=== PATIENT | female | born 1965 | race American Indian/Alaskan Native ===

== ENCOUNTER 2017-12-12 04:23 | Emergency (ER) | payer MEDICARE, BC ==
[2017-12-12 04:32] VITALS: RESP 18
[2017-12-12 04:33] VITALS: BMI 24.8
--- NOTE | 2017-12-12 04:57 | ED PDOC ---
Arrival/HPI - General Chief Complaint: Trauma Time Seen by Provider: 12/12/17 04:27 Historian: Patient - History of Present Illness Narrative History of Present Illness (Text): you were treated in the ED today for hx of sacrcoidosis, hypertension, TIAs, cervical spinal fusion, and has had lower back pain today with left sided lower extremity radiation, with fall due to pain with head injury and clarified right shoulder pain but no further other bony pain/tenderness but otherwise without any nausea/vomiting/headache/dizziness/difficulty breathing/chest pain/abdomen pain/numbness/loss of limb or bowel or bladder function/pain with urination/ blood in urine. 12/12/17 04:54 12/12/17 05:14 12/12/17 05:14 Time/Duration: 4-6 hours Past Medical History - Provider Review Nursing Documentation Reviewed: Yes - Travel History Have you recently traveled outside [place] w/in the past 3 mons?: No - Infectious Disease Hx of Infectious Diseases: None - Cardiac Hx Cardiac Disorders: Yes Hx Hypertension: Yes - Pulmonary Hx Respiratory Disorders: Yes Other/Comment: SARCOIDOSIS - Neurological Hx Neurological Disorder: Yes Hx Migraine: Yes Other/Comment: DRAGS Left LEG OLD - HEENT Hx Cataracts: Yes Hx Glaucoma: Yes - Renal Hx Renal Disorder: No - Endocrine/Metabolic Hx Endocrine Disorders: No - Hematological/Oncological Hx Blood Disorders: No - Integumentary Hx Dermatological Disorder: Yes (LARGE SKIN DARKENED SKIN DISCOLORATION TO RIGHT SIDE OF FACE.BLACKENED) - Musculoskeletal/Rheumatological Hx Musculoskeletal Disorders: Yes Hx Herniated Disk: Yes Hx Unsteady Gait: Yes Other/Comment: C3-C5 FUSION DISC HERNIATION - Gastrointestinal Hx Gastrointestinal Disorders: Yes (GASTRIC SLEEVE MAY 2016) - Genitourinary/Gynecological Hx Genitourinary Disorders: Yes (HYSTERECTOMY PARTIAL - 3 ABORTIONS,2 MISCARRIAGES) - Psychiatric Hx Psychophysiologic Disorder: No Hx Depression: No Hx Emotional Abuse: No Hx Physical Abuse: No Hx Substance Use: No - Surgical History Hx Cataract Extraction: Yes Hx Hysterectomy: Yes (PARTIAL) Other/Comment: gastric sleeve 2015. cervical fusion with plete and screws - Anesthesia Hx Anesthesia: Yes Hx Anesthesia Reactions: No - Suicidal Assessment Feels Threatened In Home Enviroment: No Family/Social History - Physician Review Nursing Documentation Reviewed: Yes Family/Social History: No Known Family HX Smoking Status: Never Smoked Hx Alcohol Use: No Hx Substance Use: No Allergies/Home Meds Allergies/Adverse Reactions: Allergies No Known Allergies Allergy (Verified 08/08/16 21:49) Home Medications: Home Meds Medication Instructions Recorded Confirmed Alprazolam [Xanax] 2 mg PO PRN PRN 12/12/17 12/12/17 Amlodipine/Valsartan/Hcthiazid 1 tab PO DAILY 12/12/17 12/12/17 [Exforge Hct 5-160-25 mg Tab] Codeine/Butalbital/ASA/Caffein 1 cap PO PRN PRN 12/12/17 12/12/17 [Fiorinal-Cod 04-73-571-40 Cap] Rosuvastatin Calcium [Crestor] 20 mg PO DAILY 12/12/17 12/12/17 oxyCODONE [oxyCODONE Immediate 30 mg PO PRN PRN 12/12/17 12/12/17 Release Tab] Review of Systems - Review of Systems Constitutional: Normal Eyes: Normal ENT: Normal Respiratory: Normal Cardiovascular: Normal Gastrointestinal: Normal Genitourinary Female: Normal Musculoskeletal: Back Pain Skin: Normal Neurological: Normal Endocrine: Normal Hemo/Lymphatic: Normal Psychiatric: Normal Physical Exam Vital Signs Reviewed: Yes Vital Signs Temp Pulse Resp BP Pulse Ox 12/12/17 06:20 97.9 F 57 L 18 139/78 98 12/12/17 04:30 97.8 F 60 18 165/91 H 100 Temperature: Afebrile Blood Pressure: Hypertensive Pulse: Regular Respiratory Rate: Normal Appearance: Positive for: Well-Appearing, Non-Toxic, Comfortable Pain Distress: None Mental Status: Positive for: Alert and Oriented X 3 - Systems Exam Head: Present: Atraumatic, Normocephalic Pupils: Present: PERRL Extroacular Muscles: Present: EOMI Conjunctiva: Present: Normal Ears: Present: Normal Mouth: Present: Moist Mucous Membranes Pharnyx: Present: Normal Nose (External): Present: Atraumatic Nose (Internal): Present: Normal Inspection Neck: Present: Normal Range of Motion, Other (no c-t spinal or paraspinal tenderness but mild lumbar discomfort.) Respiratory/Chest: Present: Clear to Auscultation Cardiovascular: Present: Regular Rate and Rhythm Abdomen: Present: Other (no pulsatile masses). No: Tenderness, Distention, Normal Bowel Sounds, Peritoneal Signs, Rebound, Guarding, McBurney's Point Tender, Rovsing's Sign Present, Hernias, Feeding Tubes, Ostomy Tubes, Mass/ Organomegaly, Scars Back: Present: Other (no c-t spinal or paraspinal tenderness but mild lumbar discomfort.) Upper Extremity: Present: Normal Inspection, Other (except for mild right shoulder discomfort but from/warm/sensation/cap refill/pink/radial pulse+ wo snuffbox or any other bony tenderness.) Lower Extremity: Present: Normal Inspection Neurological: Present: GCS=15, CN II-XII Intact, Speech Normal, Motor Func Grossly Intact Psychiatric: Present: Alert, Oriented x 3, Normal Insight, Normal Concentration Medical Decision Making ED Course and Treatment: you were treated in the ED today for hx of sacrcoidosis, hypertension, TIAs, cervical spinal fusion, and has had lower back pain today with left sided lower extremity radiation, with fall due to pain with head injury and clarified right shoulder pain but no further other bony pain/tenderness but otherwise without any nausea/vomiting/headache/dizziness/difficulty breathing/chest pain/abdomen pain/numbness/loss of limb or bowel or bladder function/pain with urination/ blood in urine. You were otherwise breathing easily, pink moist lips, smiling and talking easily, good strength/sensation, alert/oriented, walking easily, clear lungs, left lower leg straight leg test positive for lumbar discomfort, with mild lumbar discomfort but no redness or sign of infection, no abdomen tenderness, mild right shoulder discomfort with good warm/sensation/pink/pulses but no other bony tenderness/snuffbox tenderness, no fever temp 97.8, stable heart rate 60, stable breathing rate 18, excellent oxygen level 100% room air, elevated blood pressure 165/91 which we recommend repeat in 2-3 days primary care office to determine further treatment, radiology ct head no acute intracranial hemorrhage, ct lumbar no acute fracture, right shoulder xray no acute findings, tylenol, right shoulder sling for support, observation done in the ED with improvement, counselled to rest and thus discharged home. 1. Recommend tylenol as directed for pain. 2. Recommend flexeril as directed for breakthrough pain. 3. Recommend follow-up primary care 2-3 days to review symptoms, spinal clinic referral for spinal degenerative changes, referral to orthopedics clinic, referral to ear nose throat clinic for ethmoid sinus findings to ensure further treatment, referral to urology clinic for left punctate kidney stone. 4. If any worsening pain, fever, chills, nausea, vomiting , difficulty breathing, numbness, loss of limb function, pain with urination or any medical condition then return to the ED. FINDINGS: Brain: Minimal atrophy. No intracranial hemorrhage. No mass. Few scattered foci of decreased attenuation within periventricular/subcortical white matter. No edema. Ventricles: No hydrocephalus. Bones/joints: No acute fracture. Soft tissues: Unremarkable. Sinuses: Scattered mild mucosal thickening of ethmoid sinuses. Mastoid air cells: No mastoid effusion. Orbits: Unremarkable as visualized. IMPRESSION: 1. No intracranial hemorrhage. 2. Nonspecific white matter changes. 3. Incidental/non-acute findings are described above. FINDINGS: Vertebrae: No acute fracture. Degenerative anterolisthesis of L3 on L4. Facet osteoarthrosis within mid to lower lumbar spine. Discs/spinal canal/neural foramina: Mild degenerative disc disease at L3-L4 level. Severe degenerative disc disease at L4-L5 level. Mild disc herniations at L3-L4, L4-L5 L5-S1 levels. Moderate central canal stenosis at L3-L4, L4-L5 levels. Neuroforaminal narrowing at L3-L4, L4-L5, L5-S1 levels. Soft tissues: Unremarkable. Kidneys and ureters: Punctate calculus within LEFT kidney. IMPRESSION: 1. No fracture. 2. Incidental/non-acute findings are described above. 12/12/17 06:24 Reassessment Condition: Improved - RAD Interpretation Radiology Orders: 12/12/17 04:52 LUMBAR SPINE W/O CONTRAST [CT] Stat 12/12/17 05:11 HEAD W/O CONTRAST [CT] Stat SHOULDER RIGHT [RAD] Stat Technical Adjuster: Radiologist (see mdm for ct head, lumbar) - Medication Orders Current Medication Orders: Acetaminophen/Butalbital/Caffeine (Fioricet) 1 tab PO STAT STA Stop: 12/12/17 06:24 Discontinued Medications Acetaminophen (Tylenol 325mg Tab) 975 mg PO STAT STA Stop: 12/12/17 04:53 Last Admin: 12/12/17 04:59 Dose: 975 mg MAR Pain/Vitals Document 12/12/17 04:59 LA (Rec: 12/12/17 05:00 LA [id number]) Pain Reassessment Is This A Pain ReAssessment? No Sleep Is patient sleeping during reassessment? No Presence of Pain Presence of Pain Yes Pain Scale Used Pain Scale Used Numeric Location Pain Location Body Site Back Intensity 5 Scale Used Numeric NIHSS Stroke Scale 3 - Date/Time Evaluation Performed Date Performed: 12/12/17 When Was NIHSS Performed: Baseline - How Severe is the Stroke Level of Consciousness: 0=Alert LOC to Questions: 0=Both comments correct LOC to commands: 0=Obeys both correctly Best Gaze: 0=Normal Visual: 0=No visual loss Facial: 0=Normal Motor Arm - Left: 0=No drift Motor Arm - Right: 0=No drift Motor Leg - Left: 0=No drift Motor Leg - Right: 0=No drift Limb Ataxia: 0=Absent Sensory: 0=Normal Best Language: 0=No aphasia Dysarthia: 0=Normal articulation Extinction & Inattention (Neglect): 0=Normal, no object Score: 0 Disposition/Present on Arrival - Present on Arrival Any Indicators Present on Arrival: No History of DVT/PE: No History of Uncontrolled Diabetes: No Urinary Catheter: No History of Decub. Ulcer: No History Surgical Site Infection Following: None - Disposition Have Diagnosis and Disposition been Completed?: Yes Diagnosis: Sciatica Disposition: HOME/ ROUTINE Disposition Time: 06:29 Patient Plan: Discharge Condition: IMPROVED Additional Instructions: you were treated in the ED today for hx of sacrcoidosis, hypertension, TIAs, cervical spinal fusion, and has had lower back pain today with left sided lower extremity radiation, with fall due to pain with head injury and clarified right shoulder pain but no further other bony pain/tenderness but otherwise without any nausea/vomiting/headache/dizziness/difficulty breathing/chest pain/abdomen pain/numbness/loss of limb or bowel or bladder function/pain with urination/ blood in urine. You were otherwise breathing easily, pink moist lips, smiling and talking easily, good strength/sensation, alert/oriented, walking easily, clear lungs, left lower leg straight leg test positive for lumbar discomfort, with mild lumbar discomfort but no redness or sign of infection, no abdomen tenderness, mild right shoulder discomfort with good warm/sensation/pink/pulses but no other bony tenderness/snuffbox tenderness, no fever temp 97.8, stable heart rate 60, stable breathing rate 18, excellent oxygen level 100% room air, elevated blood pressure 165/91 which we recommend repeat in 2-3 days primary care office to determine further treatment, radiology ct head no acute intracranial hemorrhage, ct lumbar no acute fracture, right shoulder xray no acute findings, tylenol, right shoulder sling for support, observation done in the ED with improvement, counselled to rest and thus discharged home. 1. Recommend tylenol as directed for pain. 2. Recommend flexeril as directed for breakthrough pain. 3. Recommend follow-up primary care 2-3 days to review symptoms, spinal clinic referral for spinal degenerative changes, referral to orthopedics clinic, referral to ear nose throat clinic for ethmoid sinus findings to ensure further treatment, referral to urology clinic for left punctate kidney stone. 4. If any worsening pain, fever, chills, nausea, vomiting , difficulty breathing, numbness, loss of limb function, pain with urination or any medical condition then return to the ED. Prescriptions: Cyclobenzaprine [Cyclobenzaprine HCl] 10 mg PO Q8 PRN 4 Days #12 tab PRN Reason: breakthrough pain Referrals: Franck Napier APN [Primary Care Provider] - Follow up with primary Forms: [employer] (Ukrainian)
--- NOTE | 2017-12-12 06:15 | CT ---
EXAM: CT Head Without Intravenous Contrast CLINICAL HISTORY: 52 years old, female; Injury or trauma; Fall; Initial encounter; Abrasion; Head, generalized; Additional info: 52yof, fall/head injury TECHNIQUE: Axial computed tomography images of the head/brain without intravenous contrast. All CT scans at this facility use one or more dose reduction techniques, viz.: automated exposure control; ma/kV adjustment per patient size (including targeted exams where dose is matched to indication; i.e. head); or iterative reconstruction technique. Coronal and sagittal reformatted images were created and reviewed. COMPARISON: CT - HEAD W/O CONTRAST 2016-08-08 15:47 FINDINGS: Brain: Minimal atrophy. No intracranial hemorrhage. No mass. Few scattered foci of decreased attenuation within periventricular/subcortical white matter. No edema. Ventricles: No hydrocephalus. Bones/joints: No acute fracture. Soft tissues: Unremarkable. Sinuses: Scattered mild mucosal thickening of ethmoid sinuses. Mastoid air cells: No mastoid effusion. Orbits: Unremarkable as visualized. IMPRESSION: 1. No intracranial hemorrhage. 2. Nonspecific white matter changes. 3. Incidental/non-acute findings are described above.
--- NOTE | 2017-12-12 06:19 | CT ---
EXAM: CT Lumbar Spine Without Intravenous Contrast CLINICAL HISTORY: 52 years old, female; Injury or trauma; Fall; Initial encounter; Abrasion; Additional info: 52yof, with sciatica type pain TECHNIQUE: Axial computed tomography images of the lumbar spine without intravenous contrast. All CT scans at this facility use one or more dose reduction techniques, viz.: automated exposure control; ma/kV adjustment per patient size (including targeted exams where dose is matched to indication; i.e. head); or iterative reconstruction technique. Coronal and sagittal reformatted images were created and reviewed. COMPARISON: No relevant prior studies available. FINDINGS: Vertebrae: No acute fracture. Degenerative anterolisthesis of L3 on L4. Facet osteoarthrosis within mid to lower lumbar spine. Discs/spinal canal/neural foramina: Mild degenerative disc disease at L3-L4 level. Severe degenerative disc disease at L4-L5 level. Mild disc herniations at L3-L4, L4-L5 L5-S1 levels. Moderate central canal stenosis at L3-L4, L4-L5 levels. Neuroforaminal narrowing at L3-L4, L4-L5, L5-S1 levels. Soft tissues: Unremarkable. Kidneys and ureters: Punctate calculus within LEFT kidney. IMPRESSION: 1. No fracture. 2. Incidental/non-acute findings are described above.
[2017-12-12 06:21] VITALS: BP 139/78; PULSE 57; TEMP 97.9; O2SAT 98
[2017-12-12] MEDS ORDERED: Apap-Butalbital-Caffeine 325-50-40mg Tab PO STA (06:23)
--- NOTE | 2017-12-12 08:51 | RAD ---
PROCEDURE: Radiographs of the Right Shoulder HISTORY: 52F, fall/right shoulder discomfort COMPARISON: No prior. FINDINGS: BONES: Normal. No fracture. JOINTS: Normal. Glenohumeral and acromioclavicular joints preserved. No osteoarthritis. SOFT TISSUES: Normal. OTHER FINDINGS: None. IMPRESSION: Normal radiographs of the right shoulder.
== END 2017-12-12 06:46 | disposition home or self-care (01) ==
LOC: ED 04:23
DX: M54.30 Sciatica, unspecified side (principal); I10 Essential (primary) hypertension; D86.9 Sarcoidosis, unspecified

== ENCOUNTER 2018-03-26 14:34 | Inpatient (IN) | payer MEDICARE, BC ==
[2018-03-26] MEDS ORDERED: Sodium Chloride 0.9% 1,000 ML IV SCH (15:30)
[2018-03-26 16:11] LABS: BASO # 0.03 K/mm3 (0.0-2.0); BASO % 0.3 % (0.0-3.0); EOS # 0.1 (0.0-0.7); GRAN # 7.02 (1.4-6.5); GRAN % 74.6 % (50.0-68.0); HEMOGLOBIN 11.8 g/dL (12.0-16.0); LYMPH # 1.6 (1.2-3.4); LYMPH % 17.2 % (22.0-35.0); MEAN CORPUSCULAR HGB CONC 33.3 g/dl (31.0-37.0); MEAN PLATELET VOLUME 10.4 fl (7.0-11.0); MONO # 0.7 (0.1-0.6); MONO % 6.9 % (1.0-6.0); RBC 4.07 10^6/uL (3.5-6.1); WHITE BLOOD COUNT 9.4 10^3/ul (4.5-11.0)
[2018-03-26 16:17] LABS: INR 1.11 (0.93-1.08); PROTHROMBIN TIME 12.7 SECONDS (9.4-12.5)
[2018-03-26 16:20] LABS: ALB/GLOB RATIO 1.4 (1.1-1.8); ALBUMIN 4.3 g/dL (3.0-4.8); ALT/SGPT 27 U/L (7-56); AST/SGOT 34 U/L (14-36); BLOOD UREA NITROGEN 24 mg/dL (7-21); CALCIUM 9.4 mg/dL (8.4-10.5); GFR AFRICAN-AMERICAN > 60; GFR NON-AFRICAN AMERICAN 52; HDL CHOLESTEROL 88 mg/dL (29-60)
--- NOTE | 2018-03-26 16:24 | ED PDOC ---
Arrival/HPI - General Chief Complaint: Syncope Time Seen by Provider: 03/26/18 15:01 Historian: Patient, Spouse () - History of Present Illness Narrative History of Present Illness (Text): 03/26/18 16:16 A 52 year old female, whose past medical history includes neurological and pulmonary sacrcoidosis, hypertension, TIAs, cervical spinal fusion, hyperlipidemia, anxiety, glaucoma, peptic ulcer disease, hiatal hernia, s/p CTAH /BSO, Prednisone dependent, presents to the emergency department complaining of 2 week duration dizziness, characterized as lightheadedness. She notes that it culminated in an episode of dizziness while she was cooking and she said she decided to go to bathroom and ended up in her closet, confused. She notes that she has lived in that same house 33 years. Her notes that he was concerned and took her to the bathroom where she syncopized to the floor. He states that the LOC was under 1 minute. She decided to continue her household duties and then seek medical attention. The patient denies fevers, chills, headache, chest pain, shortness of breath, dyspnea on exertion, cough, abdominal pain, nausea, vomiting, diarrhea, back pain, neck pain, urinary/bowel changes, acute fluid losses, hematochezia, melena, palpitations, decreased appetite,trauma/injury, or any other complaint. PMD: Time/Duration: Prior to Arrival Symptom Onset: Sudden Symptom Course: Improving Activities at Onset: Rest, Light Context: Home Past Medical History - Provider Review Nursing Documentation Reviewed: Yes - Infectious Disease Hx of Infectious Diseases: None - Reproductive Menopause: Yes - Cardiac Hx Cardiac Disorders: Yes Hx Hypertension: Yes - Pulmonary Hx Respiratory Disorders: Yes Other/Comment: SARCOIDOSIS - Neurological Hx Neurological Disorder: Yes Hx Migraine: Yes Other/Comment: DRAGS Left LEG OLD - HEENT Hx Cataracts: Yes Hx Glaucoma: Yes - Renal Hx Renal Disorder: No - Endocrine/Metabolic Hx Endocrine Disorders: No - Hematological/Oncological Hx Blood Disorders: No - Integumentary Hx Dermatological Disorder: Yes (LARGE SKIN DARKENED SKIN DISCOLORATION TO RIGHT SIDE OF FACE.BLACKENED) - Musculoskeletal/Rheumatological Hx Musculoskeletal Disorders: Yes Hx Herniated Disk: Yes Hx Unsteady Gait: Yes Other/Comment: C3-C5 FUSION DISC HERNIATION - Gastrointestinal Hx Gastrointestinal Disorders: Yes (GASTRIC SLEEVE MAY 2016) - Genitourinary/Gynecological Hx Genitourinary Disorders: Yes (HYSTERECTOMY PARTIAL - 3 ABORTIONS,2 MISCARRIAGES) - Psychiatric Hx Psychophysiologic Disorder: No Hx Depression: No Hx Emotional Abuse: No Hx Physical Abuse: No Hx Substance Use: No - Surgical History Hx Cataract Extraction: Yes Hx Hysterectomy: Yes (PARTIAL) Other/Comment: gastric sleeve 2015. cervical fusion with plete and screws - Anesthesia Hx Anesthesia: Yes Hx Anesthesia Reactions: No - Suicidal Assessment Feels Threatened In Home Enviroment: No Family/Social History - Physician Review Nursing Documentation Reviewed: Yes Family/Social History: No Known Family HX Smoking Status: Never Smoked Hx Alcohol Use: No Hx Substance Use: No Allergies/Home Meds Allergies/Adverse Reactions: Allergies No Known Allergies Allergy (Verified 08/08/16 21:49) Home Medications: Home Meds Medication Instructions Recorded Confirmed Alprazolam [Xanax] 2 mg PO PRN PRN 12/12/17 03/26/18 Amlodipine/Valsartan/Hcthiazid 1 tab PO DAILY 12/12/17 03/26/18 [Exforge Hct 5-160-25 mg Tab] Codeine/Butalbital/ASA/Caffein 1 cap PO PRN PRN 12/12/17 03/26/18 [Fiorinal-Cod 72-03-743-40 Cap] Rosuvastatin Calcium [Crestor] 20 mg PO DAILY 12/12/17 03/26/18 oxyCODONE [oxyCODONE Immediate 30 mg PO PRN PRN 12/12/17 03/26/18 Release Tab] Review of Systems - Physician Review All systems were reviewed & negative as marked: Yes - Review of Systems Constitutional: absent: Fevers, Night Sweats Respiratory: absent: SOB, Cough Cardiovascular: absent: Chest Pain, Palpitations, COLLINS Gastrointestinal: absent: Abdominal Pain, Stool Changes, Diarrhea, Nausea, Vomiting, Appetite Changes (Decreased), Hematochezia Genitourinary Female: absent: Urine Output Changes Musculoskeletal: absent: Back Pain, Neck Pain Neurological: Dizziness (Lightheadedness. ). absent: Headache Psychiatric: Other (Confusion.) Physical Exam Vital Signs Reviewed: Yes Vital Signs Temp Pulse Resp BP Pulse Ox 03/26/18 21:40 98.9 F 66 18 123/89 03/26/18 21:13 60 18 130/92 H 99 03/26/18 21:06 60 18 114/73 100 03/26/18 19:01 66 18 114/58 L 99 03/26/18 14:56 98.9 F 78 18 117/63 96 Temperature: Afebrile Blood Pressure: Normal Pulse: Regular Respiratory Rate: Normal Appearance: Positive for: Well-Appearing, Non-Toxic, Comfortable Pain Distress: None Mental Status: Positive for: Alert and Oriented X 3 Finger Stick Blood Glucose: 102 - Systems Exam Head: Present: Atraumatic, Normocephalic Pupils: Present: PERRL Extroacular Muscles: Present: EOMI Conjunctiva: Present: Normal Mouth: Present: Moist Mucous Membranes Neck: Present: Normal Range of Motion Respiratory/Chest: Present: Clear to Auscultation, Good Air Exchange. No: Respiratory Distress, Accessory Muscle Use Cardiovascular: Present: Regular Rate and Rhythm, Normal S1, S2. No: Murmurs Abdomen: No: Tenderness, Distention, Peritoneal Signs Back: Present: Normal Inspection Upper Extremity: Present: Normal Inspection. No: Cyanosis, Edema Lower Extremity: Present: Normal Inspection. No: Edema Neurological: Present: GCS=15, CN II-XII Intact, Speech Normal, Other (Positive Romberg. When patient pushed to the right, almost fell twice. ). No: Gait Normal (Gait was more measured when walking with her eyes closed. ) Skin: Present: Warm, Dry, Normal Color. No: Rashes Psychiatric: Present: Alert, Oriented x 3, Normal Insight, Normal Concentration Medical Decision Making ED Course and Treatment: 03/26/18 16:27 Impression: A 52 year old female presents to the emergency department for a complaint of 2 week duration dizziness, and new onset transient episode of confusion and syncope today with positive neurological findings. Plan: -- EKG -- Chest X-ray -- Labs -- Ativan and IV Fluids -- Reassess and disposition Progress Notes: 03/26/18 16:27: Case discussed in detail with Dr. Lou who recommends MRI and potential follow up on Wednesday morning. Requests neurologist video production engineer, Dr. Ramos, be contacted. 03/26/18 17:08: Case discussed in detail with Dr. Ramos whom advised brain mri with and without contrast, as well as cervical and thoracic spine. Unfortunately given MRI hours today only the former will be possible. Pt will also need as per Dr. Ramos an EEG. As per Dr. Ramos pt. based on the findings I described to him, suspects posterior column disease. Pt. will be admitted for syncope w/u otherwise as well. Chest X-ray Creator : Tucker Fowler MD Report Date : 03/26/2018 17:42:18 IMPRESSION: No active disease. PROCEDURE: MRI BRAIN WITH AND WITHOUT CONTRAST Creator : Tucker Fowler MD Report Date : 03/26/2018 18:08:56 IMPRESSION: Re- demonstrated are multiple small round and elliptical shaped varying sized focal areas of increased T2 signal scattered about the periventricular and deep white matter both cerebral hemispheres. Several of the larger lesions exhibit T1 black hole appearance and none of these lesions demonstrate enhancement. In addition, very minimal slightly coalescent prolonged T2 signal changes seen in the periventricular white matter most. Note that there also appears to be some mild shine through artifact involving the periventricular changes most conspicuous in the periventricular white matter surrounding the posterior margins of the lateral ventricles. Note also made of some mild shine through artifact involving posterior periventricular changes as well. . . These changes may represent a stable demyelinating disease process such as multiple sclerosis. Clinical correlation recommended. . . Note that the changes appear to have improved slightly when compared with the prior exam. - Lab Interpretations Lab Results: 03/26/18 16:00 03/26/18 16:00 Lab Results 03/26/18 16:55: Blood Type Confirm B POSITIVE 03/26/18 16:31: Hemoglobin A1c 5.4 03/26/18 16:12: Blood Type B POSITIVE, Antibody Screen Negative, BBK History Checked No verified bt 03/26/18 16:00: Sodium 144, Potassium 3.9, Chloride 104, Carbon Dioxide 30, Anion Gap 14, BUN 24 H, Creatinine 1.1, Est GFR ( Amer) > 60, Est GFR ( Non-Af Amer) 52, Random Glucose 101, Calcium 9.4, Total Bilirubin 0.1 L, AST 34 , ALT 27, Alkaline Phosphatase 79, Troponin I < 0.01, Total Protein 7.4, Albumin 4.3, Globulin 3.1, Albumin/Globulin Ratio 1.4, Triglycerides 68, Cholesterol 190, LDL Cholesterol Direct 77, HDL Cholesterol 88 H 03/26/18 16:00: PT 12.7 H, INR 1.11 H, APTT 27.0 03/26/18 16:00: WBC 9.4 D, RBC 4.07, Hgb 11.8 L, Hct 35.4 L, MCV 87.0, MCH 29.0 , MCHC 33.3, RDW 12.0, Plt Count 223, MPV 10.4, Gran % 74.6 H, Lymph % (Auto) 17.2 L, [place] % (Auto) 6.9 H, Eos % (Auto) 1.0 L, Baso % (Auto) 0.3, Gran # 7.02 H, Lymph # (Auto) 1.6, [place] # (Auto) 0.7 H, Eos # (Auto) 0.1, Baso # (Auto) 0.03 I have reviewed the lab results: Yes - RAD Interpretation Radiology Orders: 03/26/18 15:27 CHEST PORTABLE [RAD] Stat 03/26/18 15:56 BRAIN W & WO CONTRAST [MRI] Stat - EKG Interpretation Interpreted by ED Physician: Yes Type: 12 lead EKG - Medication Orders Current Medication Orders: Acetaminophen/Butalbital/Caffeine (Fioricet) 1 tab PO Q4H PRN PRN Reason: Headache Last Admin: 03/27/18 09:17 Dose: 1 tab [facility] Pain Assessment Document 03/27/18 09:17 CD (Rec: 03/27/18 09:17 CD [id number]) Pain Reassessment Is this a pain reassessment? No Presence of Pain Presence of Pain Yes Pain Scale Used Pain Scale Used Numeric Location Pain Location Body Long Lines Operator Description Description Throbbing Intensity of Pain at present 5 Re-Assess: [facility] Pain Assessment Document 03/27/18 10:17 CD (Rec: 03/27/18 11:20 CD [id number]) Pain Reassessment Is this a pain reassessment? Yes Presence of Pain Presence of Pain Yes Atorvastatin Calcium (Lipitor) 80 mg PO DIN ASHWINI Sodium Chloride (Sodium Chloride 0.9%) 1,000 mls @ 125 mls/hr IV .Q8H ASHWINI Last Admin: 03/27/18 08:35 Dose: Oxycodone/Acetaminophen (Percocet 5/325 Mg Tab) 1 tab PO Q6 PRN PRN Reason: PAIN, SEVERE [8-10] Stop: 03/29/18 21:51 Last Admin: 03/27/18 11:24 Dose: 1 tab [facility] Pain Assessment Document 03/27/18 11:24 CD (Rec: 03/27/18 11:25 CD [id number]) Pain Reassessment Is this a pain reassessment? No Presence of Pain Presence of Pain Yes Pain Scale Used Pain Scale Used Numeric Location Pain Location Body Site Back Description Intensity of Pain at present 8 Re-Assess: MAR Pain Assessment Edit Result 03/27/18 12:24 CD (Rec: 03/27/18 12:36 CD [id number]) Pain Reassessment Is this a pain reassessment? Yes Presence of Pain Presence of Pain No Pain Scale Used Pain Scale Used Numeric Description Description Chronic Intensity of Pain at present 4 Pantoprazole Sodium (Protonix Ec Tab) 40 mg PO DAILY [facility] Last Admin: 03/27/18 09:17 Dose: 40 mg Discontinued Medications Alprazolam (Xanax) 0.5 mg PO TID PRN; Protocol PRN Reason: Anxiety Alprazolam (Xanax) 1 mg PO ONCE ONE PRN Reason: Protocol Stop: 03/26/18 22:52 Last Admin: 03/27/18 00:41 Dose: 1 mg Behavioural Document 03/27/18 00:41 CDE (Rec: 03/27/18 00:41 CDE [id number]) Maintenance Maintenance Dose Yes Hydromorphone HCl (Dilaudid) 1 mg IVP STAT STA Stop: 03/26/18 18:39 Last Admin: 03/26/18 18:49 Dose: 1 mg [facility] Pain Assessment Document 03/26/18 18:49 OCS (Rec: 03/26/18 18:50 OCS [id number]) Pain Reassessment Is this a pain reassessment? No Sleep Is patient sleeping during reassessment? No Presence of Pain Presence of Pain Yes Pain Scale Used Pain Scale Used Numeric Location Left, Right or Bilateral Bilateral Pain Location Body Site Leg Description Description Constant IVP Administration Document 03/26/18 18:49 OCS (Rec: 03/26/18 18:50 OCS [id number]) Charges for Administration # of IVP Administrations 1 Sodium Chloride (Sodium Chloride 0.9%) 1,000 mls @ 100 mls/hr IV .Q10H ASHWINI Last Admin: 03/26/18 16:07 Dose: 100 mls/hr eMAR Start Stop Document 03/26/18 16:07 OCS (Rec: 03/26/18 16:07 OCS [id number]) Intravenous Solution Start Date 03/26/18 Start Time 16:07 Sodium Chloride (Sodium Chloride 0.9%) 1,000 mls @ 999 mls/hr IV .Q1H1M STA Stop: 03/26/18 22:42 Lorazepam (Ativan) 0.5 mg IVP ONCE ONE PRN Reason: Protocol Stop: 03/26/18 16:27 Last Admin: 03/26/18 16:43 Dose: 0.5 mg IVP Administration Document 03/26/18 16:43 OCS (Rec: 03/26/18 16:43 OCS [id number]) Charges for Administration # of IVP Administrations 1 Morphine Sulfate (Morphine) 2 mg IVP STAT STA Stop: 03/26/18 18:23 Last Admin: 03/26/18 18:37 Dose: Not Given Non-Admin Reason: Patient Refused Morphine Sulfate (Morphine) 2 mg IVP STAT STA Stop: 03/26/18 18:36 Last Admin: 03/26/18 18:38 Dose: Not Given Non-Admin Reason: Patient Refused Pneumococcal Polyvalent Vaccine (Pneumovax 23 Vaccine) 0.5 ml IM .ONCE ONE Stop: 03/26/18 21:59 Last Admin: 03/27/18 01:18 Dose: Immunization Registry Document 03/27/18 01:18 CDE (Rec: 03/27/18 01:18 CDE [id number]) Immunization Registry Consent Date 12/12/17 - Scribe Statement The provider has reviewed the documentation as recorded by the Janiyaibe Elle Chandler Provider Scribe Attestation: All medical record entries made by the Scribe were at my direction and personally dictated by me. I have reviewed the chart and agree that the record accurately reflects my personal performance of the history, physical exam, medical decision making, and the department course for this patient. I have also personally directed, reviewed, and agree with the discharge instructions and disposition. Disposition/Present on Arrival - Present on Arrival Any Indicators Present on Arrival: No History of DVT/PE: No History of Uncontrolled Diabetes: No Urinary Catheter: No History of Decub. Ulcer: No History Surgical Site Infection Following: None - Disposition Have Diagnosis and Disposition been Completed?: Yes Diagnosis: Syncope, Neurosarcoidosis Disposition: HOSPITALIZED Disposition Time: 16:15 Patient Plan: Admission Condition: FAIR
[2018-03-26 16:31] LABS: LDL CHOLESTEROL 77 mg/dL (0-129)
[2018-03-26 16:34] LABS: TROPONIN I < 0.01 ng/mL
[2018-03-26] MEDS ORDERED: Gadodiamide 287 MG/ML VIAL (15ML) IV ONE (17:20)
--- NOTE | 2018-03-26 17:43 | RAD ---
HISTORY: Routine med stroke COMPARISON: Comparison chest dated 08/09/2016 FINDINGS: LUNGS: No active pulmonary disease. PLEURA: No significant pleural effusion identified, no pneumothorax apparent. CARDIOVASCULAR: Normal. OSSEOUS STRUCTURES: No significant abnormalities. VISUALIZED UPPER ABDOMEN: Normal. OTHER FINDINGS: None. IMPRESSION: No active disease.
--- NOTE | 2018-03-26 18:10 | MRI ---
PROCEDURE: MRI BRAIN WITH AND WITHOUT CONTRAST HISTORY: syncope /confussional state/ hx of neurosarcoid COMPARISON: Comparison made with prior CT scan and MRI of brain dated 12/12/2017 and 01/04/2015 respectively. TECHNIQUE: Multiplanar, multisequence MR images of the brain were obtained with and without intravenous contrast enhancement. FINDINGS: HEMORRHAGE: No acute parenchymal, subarachnoid or extra-axial hemorrhage. No evidence of hemosiderin deposition identified on gradient echo weighted sequence. DWI: No evidence of an acute or early subacute infarction seen on diffusion imaging. BRAIN PARENCHYMA: There are multiple small round and elliptical shaped varying sized focal areas of increased T2 signal scattered about the periventricular and deep white matter both cerebral hemispheres. Several of the larger lesions exhibit T1 black hole appearance and none of these lesions demonstrate enhancement. In addition, very minimal slightly coalescent prolonged T2 signal changes seen in the periventricular white matter most. Note that there also appears to be some mild shine through artifact involving the periventricular changes most conspicuous in the periventricular white matter surrounding the posterior margins of the lateral ventricles. Note also made of some mild shine through artifact involving posterior periventricular changes as well. . . These changes may represent a stable demyelinating disease process such as multiple sclerosis. Clinical correlation recommended. . . Note that the changes appear to have improved slightly when compared with the prior exam. Ventricular and sulcal size are within range of normal for this patient's stated age. ENHANCEMENT: No abnormal intracranial enhancement. No evidence of unusual meningeal enhancement VENTRICLES: No obstructive hydrocephalus. CRANIUM: Unremarkable. ORBITS: Changes of bilateral cataract surgery again noted. . PARANASAL SINUSES/MASTOIDS: Clear VASCULAR SYSTEM: Visualized major vascular flow voids at skull base patent. OTHER FINDINGS: None . IMPRESSION: Re- demonstrated are multiple small round and elliptical shaped varying sized focal areas of increased T2 signal scattered about the periventricular and deep white matter both cerebral hemispheres. Several of the larger lesions exhibit T1 black hole appearance and none of these lesions demonstrate enhancement. In addition, very minimal slightly coalescent prolonged T2 signal changes seen in the periventricular white matter most. Note that there also appears to be some mild shine through artifact involving the periventricular changes most conspicuous in the periventricular white matter surrounding the posterior margins of the lateral ventricles. Note also made of some mild shine through artifact involving posterior periventricular changes as well. . . These changes may represent a stable demyelinating disease process such as multiple sclerosis. Clinical correlation recommended. . . Note that the changes appear to have improved slightly when compared with the prior exam.
[2018-03-26] MEDS ORDERED: Morphine 2 mg/2 mL syringe IVP STA ×2 (18:22→18:35)
[2018-03-26] MEDS ORDERED: Morphine 2 mg/ml ISec IVP STA (18:35)
[2018-03-26] MEDS ORDERED: HYDROmorphone 0.5 mg/0.5 ml ISec IVP STA (18:38)
[2018-03-26] MEDS ORDERED: Sodium Chloride 0.9% 1,000 ML IV STA (21:42)
[2018-03-26] MEDS ORDERED: Oxycodone/Acetaminophen 5/325 mg Tab PO PRN (21:43)
[2018-03-26] MEDS ORDERED: Apap-Butalbital-Caffeine 325-50-40mg Tab PO PRN (21:43)
[2018-03-26 21:55] LABS: PH,URINE 5.5 (4.7-8.0); URINE BILIRUBIN NEGATIVE (NEGATIVE); URINE BLOOD NEGATIVE (NEGATIVE); URINE GLUCOSE (UA) NEGATIVE (NEGATIVE); URINE LEUKOCYTE ESTERASE NEGATIVE Leu/uL (NEGATIVE); URINE PROTEIN NEGATIVE mg/dL (<30 mg/dL); URINE UROBILINOGEN 0.2 E.U./dL (<1 E.U./dL)
[2018-03-26 21:57] VITALS: BMI 25.0
[2018-03-26] MEDS ORDERED: Pneumococcal 23-Valent Vaccine IM ONE (21:58)
[2018-03-26 21:59] LABS: URINE APPEARANCE CLEAR (CLEAR); URINE COLOR YELLOW (YELLOW)
--- NOTE | 2018-03-26 22:02 | CP.PCM.HP ---
<Peter Moscoso - Last Filed: 03/26/18 23:23> History of Present Illness - History of Present Illness History of Present Illness: PGY-1 H&P for Dr. Appiah This is a 52 year old female with PMHx neurosarcoidosis, pulmonary sarcoidosis, glaucoma, migraines, neck and back pain s/p trauma and multiple surgeries, vertigo, HTN, HLD who presented complaining of dizziness. This has been ongoing for the past two weeks and is worsened when rising from a seated position. Patient states that at the dizziness worsened yesterday. At around 1:30-2:00 early this morning, the patient was trying to go to the bathroom but ended up in her closet, unsure of what happened. Patient then went to the bathroom where she was believes that she might have passed out. Per , patient was unconscious for less than a minute. Patient denies weakness or changes in her vision but cites that she has poor vision at baseline secondary to glaucoma, cataracts, and multiple eye surgeries. Patient admits to tingling in the right hand which at times wakes her up at night as well as some numbness in the toes of the left foot. She states that these paresthesias are not new issues. Patient also has mild headache but admits that her dizziness has improved since being in the emergency room. Patient denies fevers, chills, chest pain, dyspnea. PMHx: neurosarcoidosis, pulmonary sarcoidosis, glaucoma, migraines, neck and back pain s/p trauma and multiple surgeries, vertigo, HTN, HLD PSHx: multiple back and neck surgeries, cholecystectomy, eye surgeries x 7 (4 on right eye, 3 on left eye), bilateral cataract surgery, left rotator cuff surgery, gastric sleeve Allergies: Grass Social: Denies tobacco, alcohol, drugs. 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 Family Hx: Father with DM. Mother with DM, CVA. Sister with CVA. PMD: Dr. Franck Napier Neurologist: Dr. Lou Navarro meds: Reviewed as per MAR Present on Admission - Present on Admission Any Indicators Present on Admission: No Review of Systems - Constitutional Constitutional: absent: Chills, Fever - EENT Eyes: absent: Change in Vision Ears: absent: Decreased Hearing Nose/Mouth/Throat: absent: Nasal Congestion - Cardiovascular Cardiovascular: absent: Chest Pain - Respiratory Respiratory: absent: Dyspnea - Gastrointestinal Gastrointestinal: absent: Abdominal Pain, Nausea, Vomiting - Genitourinary Genitourinary: absent: Dysuria - Musculoskeletal Musculoskeletal: Back Pain (intermittent), Neck Pain (intermittent), Numbness ( toes on left foot) - Neurological Neurological: Dizziness (improving), Numbness (toes on left foot), Headaches, Tingling (right hand at times). absent: Weakness Past Patient History - Infectious Disease Hx of Infectious Diseases: None - Past Social History Smoking Status: Never Smoked - CARDIAC Hx Cardiac Disorders: Yes Hx Hypertension: Yes - PULMONARY Hx Respiratory Disorders: Yes (pulmonary sarcardosis) Other/Comment: chronic cough every year from november to april "dry annoying cough" pt stated - NEUROLOGICAL Hx Neurological Disorder: Yes (neurosarcardosis) Hx Migraine: Yes (headaches) Other/Comment: left leg drags - HEENT Hx HEENT Problems: Yes Hx Cataracts: Yes Hx Glaucoma: Yes Other/Comment: denies left ear hearing loss - RENAL Hx Chronic Kidney Disease: No - ENDOCRINE/METABOLIC Hx Endocrine Disorders: No - HEMATOLOGICAL/ONCOLOGICAL Hx Blood Disorders: No - INTEGUMENTARY Hx Dermatological Problems: Yes (LARGE SKIN DARKENED SKIN DISCOLORATION TO RIGHT SIDE OF FACE.BLACKENED) Hx Psoriasis: Yes Other/Comment: chronic dark nodules on skin pt has them removed but "they grow back" stated pt,dry patches of skin to elbows due to psoriasis, pt also gets dry patches to scalp - MUSCULOSKELETAL/RHEUMATOLOGICAL Hx Musculoskeletal Disorders: Yes Hx Back Pain: Yes Hx Herniated Disk: Yes Hx Unsteady Gait: Yes (cane) Other/Comment: C3-C5 FUSION DISC HERNIATION with plate and screws - GASTROINTESTINAL Hx Gastrointestinal Disorders: Yes (GASTRIC SLEEVE MAY 2016) Other/Comment: umbilical hernia, has had 3 umbilical hernia sx's as per pt but hernia keeps coming back - GENITOURINARY/GYNECOLOGICAL Hx Genitourinary Disorders: Yes (HYSTERECTOMY PARTIAL - 3 ABORTIONS,2 MISCARRIAGES) Other/Comment: chronic monthy vaginal yeast infections since 09/2017 c/o itch odor "feels drainage but it doesn't come out" pt stated. chronic intermittent swelling under b/l breasts since 2013 - PSYCHIATRIC Hx Psychophysiologic Disorder: No Hx Depression: No Hx Emotional Abuse: No Hx Physical Abuse: No - SURGICAL HISTORY Hx Hysterectomy: Yes (PARTIAL) Other/Comment: gastric sleeve 2015. cervical fusion with plate and screws - ANESTHESIA Hx Anesthesia: Yes Hx Anesthesia Reactions: No Meds Allergies/Adverse Reactions: Allergies Allergy/AdvReac Type Severity Reaction Status Date / Time No Known Allergies Allergy Verified 08/08/16 21:49 Physical Exam - Constitutional Appears: No Acute Distress - Head Exam Head Exam: ATRAUMATIC, NORMOCEPHALIC Additional comments: Black discoloration on right side of face - Eye Exam Eye Exam: EOMI Additional comments: Right pupil pinpoint <2mm Left pupil 3 mm Both non-reactive to light - ENT Exam ENT Exam: Mucous Membranes Moist - Respiratory Exam Respiratory Exam: Clear to Auscultation Bilateral, NORMAL BREATHING PATTERN. absent: Rales, Rhonchi, Wheezes - Cardiovascular Exam Cardiovascular Exam: REGULAR RHYTHM, +S1, +S2 Additional comments: Orthostatic vitals performed at bedside as follows: Lying flat: 142/79 Sittin/79 Standing: Initially was 80/51 but repeat follow up standing BP was 130/92 - GI/Abdominal Exam GI & Abdominal Exam: Normal Bowel Sounds, Soft. absent: Tenderness - Extremities Exam Extremities exam: Negative for: pedal edema - Neurological Exam Neurological exam: Alert, CN II-XII Intact, Oriented x3 Additional comments: Muscle strength 5/5 bilateral upper and lower extremities Sensation to light touch intact bilateral upper and lower extremities Negative Rhomberg Test Normal finger to nose test No nystagmus elicited Down-going plantar responses - Psychiatric Exam Psychiatric exam: Normal Affect, Normal Mood - Skin Skin Exam: Dry, Warm Additional comments: black discoloration on right side of face Results - Vital Signs Recent Vital Signs: Last Vital Signs Temp 98.9 F 03/26/18 14:56 Pulse 60 03/26/18 21:06 Resp 18 03/26/18 21:06 BP 114/73 03/26/18 21:06 Pulse Ox 100 03/26/18 21:06 - Labs Result Diagrams: 03/26/18 16:00 03/26/18 16:00 Assessment & Plan - Assessment and Plan (Free Text) Assessment: This is a 52 year old female with PMHx neurosarcoidosis, pulmonary sarcoidosis, glaucoma, migraines, neck and back pain s/p trauma and multiple surgeries, vertigo, HTN, HLD who presented complaining of dizziness. Plan: 1. Dizziness, possible orthostatic component -MRI brain shows possible stable demyelinating disease process such as multiple sclerosis -Neurology was consulted and requested MRI of the cervical and thoracic spine which was ordered -Orthostatic vitals performed by me in the ED was positive -EEG ordered per neurology recommendations -Echocardiogram ordered -checking UA, drug screen, TSH, Hgb A1c, B12, folate -checking another troponin in the AM labs -1 L NS bolus followed by maintenance fluids 125 cc/hr 2. History of HTN -resumed home meds (Exforge) 3. History of HLD -lipid panel is within normal limits -resumed statin 4. Prophylaxis -SCDs -Protonix Discussed with Dr. Bijal Moscoso PGY-1 <Bijal LANDIS,Santi - Last Filed: 03/27/18 02:13> Results - Vital Signs Recent Vital Signs: Last Vital Signs Temp 98.9 F 03/26/18 21:40 Pulse 66 03/26/18 21:40 Resp 18 03/26/18 21:40 BP 123/89 03/26/18 21:40 Pulse Ox 99 03/26/18 21:13 - Labs Result Diagrams: 03/26/18 16:00 03/26/18 16:00 Labs: Laboratory Results - last 24 hr 03/26/18 21:43 Urine Color Yellow Urine Appearance Clear Urine pH 5.5 Ur Specific [place] >= 1.030 Urine Protein Negative Urine Glucose (UA) Negative Urine Ketones Trace H Urine Blood Negative Urine Nitrate Negative Urine Bilirubin Negative Urine Urobilinogen 0.2 Ur Leukocyte Esterase Negative Attending/Attestation - Attestation I have personally seen and examined this patient.: Yes I have fully participated in the care of the patient.: Yes I have reviewed all pertinent clinical information: Yes Notes (Text): -I agree with the above H&P completed by the resident physician with the following additions and/or changes: -The patient is a 52 year old woman with a history of sarcoidosis (with both neuro and pulmonary involvement), glaucoma, migraines, chronic back pain, vertigo, HTN and HLD who presents with 10 days of dizziness and a syncopal episode occurring earlier today. The differential diagnosis includes: Orthostasis vs Cardiac vs Vasovagal vs CVA vs Medication Effects. An MRI-brain done in the ED didnt show any acute findings (but did mention some chronic features possibly concerning for MS). Neurology is already on board and per their recommendations, both thoracic and cervical spine MRIs have been ordered as well as an EEG. Also, orders for serial neuro checks, fall precautions, HOB> 30 degrees, Vit B12, HgA1c, TSH, UA, urine drug screen and orthostatics have all been placed.
[2018-03-26] MEDS: Oxycodone/Acetaminophen 5/325 mg Tab PO PRN (23:12)
[2018-03-27 07:38] LABS: BASO # 0.03 K/mm3 (0.0-2.0); BASO % 0.5 % (0.0-3.0); EOS # 0.1 (0.0-0.7); EOS % 2.3 % (1.5-5.0); GRAN # 1.95 (1.4-6.5); GRAN % 34.9 % (50.0-68.0); HEMOGLOBIN 10.7 g/dL (12.0-16.0); LYMPH % 54.1 % (22.0-35.0); MEAN CELL VOLUME 87.5 fl (80.0-105.0); MEAN CORPUSCULAR HEMOGLOBIN 28.5 pg (25.0-35.0); MEAN CORPUSCULAR HGB CONC 32.5 g/dl (31.0-37.0); MEAN PLATELET VOLUME 10.3 fl (7.0-11.0); MONO # 0.5 (0.1-0.6); MONO % 8.2 % (1.0-6.0); RBC 3.76 10^6/uL (3.5-6.1); RED CELL DISTRIBUTION WIDTH 11.8 % (11.5-14.5); WHITE BLOOD COUNT 5.6 10^3/ul (4.5-11.0)
[2018-03-27 07:52] LABS: ALB/GLOB RATIO 1.3 (1.1-1.8); ALBUMIN 3.6 g/dL (3.0-4.8); ALT/SGPT 26 U/L (7-56); AST/SGOT 24 U/L (14-36); BLOOD UREA NITROGEN 20 mg/dL (7-21); CALCIUM 9.3 mg/dL (8.4-10.5); GFR AFRICAN-AMERICAN > 60; GFR NON-AFRICAN AMERICAN > 60
[2018-03-27 07:53] LABS: TROPONIN I < 0.01 ng/mL
--- NOTE | 2018-03-27 08:00 | CP.PCM.PN ---
<Yvon Steiner - Last Filed: 03/28/18 13:31> Subjective - Date & Time of Evaluation Date of Evaluation: 03/27/18 Time of Evaluation: 06:30 - Subjective Subjective: Patient seen and examined at bedside stating she has a headache. Denies abdominal pain, chest pain, nausea, vomiting, diarrhea, fevers, chills, cough. Objective - Vital Signs/Intake and Output Vital Signs (last 24 hours): Temp Pulse Resp BP Pulse Ox 98.2 F 56 L 22 95/62 L 100 03/27/18 06:00 03/27/18 06:00 03/27/18 06:00 03/27/18 06:00 03/27/18 06:00 Intake and Output: 03/27/18 03/27/18 06:59 18:59 Intake Total 480 Balance 480 - Medications Medications: Current Medications Acetaminophen/Butalbital/Caffeine (Fioricet) 1 tab PO Q4H PRN PRN Reason: Headache Atorvastatin Calcium (Lipitor) 80 mg PO DIN [facility] Sodium Chloride (Sodium Chloride 0.9%) 1,000 mls @ 125 mls/hr IV .Q8H ASHWINI Last Admin: 03/27/18 00:00 Dose: Not Given Oxycodone/Acetaminophen (Percocet 5/325 Mg Tab) 1 tab PO Q6 PRN PRN Reason: PAIN, SEVERE [8-10] Stop: 03/29/18 21:51 Last Admin: 03/26/18 23:12 Dose: 1 tab Pantoprazole Sodium (Protonix Ec Tab) 40 mg PO DAILY ASHWINI - Labs Labs: 03/27/18 07:00 03/27/18 07:00 PT 12.7 SECONDS (9.4-12.5) H 03/26/18 16:00 INR 1.11 (0.93-1.08) H 03/26/18 16:00 APTT 27.0 Seconds (25.1-36.5) 03/26/18 16:00 - Head Exam Head Exam: ATRAUMATIC, NORMAL INSPECTION, NORMOCEPHALIC - Eye Exam Eye Exam: EOMI, Normal appearance - ENT Exam ENT Exam: Mucous Membranes Moist, Normal Exam - Neck Exam Neck Exam: Normal Inspection - Respiratory Exam Respiratory Exam: Clear to Ausculation Bilateral, NORMAL BREATHING PATTERN. absent: Rhonchi, Wheezes - Cardiovascular Exam Cardiovascular Exam: REGULAR RHYTHM, +S1, +S2 - GI/Abdominal Exam GI & Abdominal Exam: Soft, Normal Bowel Sounds - Extremities Exam Extremities Exam: Normal Inspection - Back Exam Back Exam: NORMAL INSPECTION - Neurological Exam Neurological Exam: Alert, Awake, Oriented x3 - Psychiatric Exam Psychiatric exam: Normal Affect, Normal Mood - Skin Skin Exam: Normal Color, Warm Assessment and Plan - Assessment and Plan (Free Text) Assessment: This is a 52 year old female with PMHx neurosarcoidosis, pulmonary sarcoidosis, glaucoma, migraines, neck and back pain s/p trauma and multiple surgeries, vertigo, HTN, HLD who presented complaining of dizziness. Plan: Dizziness, possible orthostatic component -MRI brain shows possible stable demyelinating disease process such as multiple sclerosis -Neurology was consulted and requested MRI of the cervical and thoracic spine which was ordered -Orthostatic vitals signs positive -EEG ordered per neurology recommendations; f/u with results -Echocardiogram ordered; f/u with results -checking UA, TSH, Hgb A1c, B12, folate which were all within normal limits -Troponin negative x2 History of HTN -Home meds (Exforge) place on hold; may be causing orthostatic hypotension -Determine adding back htn meds in order once bp increases starting with amlodipine History of HLD -lipid panel is within normal limits -resumed statin Prophylaxis -SCDs -Protonix <Tono Al - Last Filed: 03/29/18 14:10> Objective - Vital Signs/Intake and Output Vital Signs (last 24 hours): Temp Pulse Resp BP Pulse Ox 97.1 F L 52 L 21 138/74 100 03/28/18 12:00 03/28/18 14:00 03/28/18 12:00 03/28/18 12:00 03/28/18 06:00 - Labs Labs: 03/28/18 05:30 03/28/18 05:30 PT 12.7 SECONDS (9.4-12.5) H 03/26/18 16:00 INR 1.11 (0.93-1.08) H 03/26/18 16:00 APTT 27.0 Seconds (25.1-36.5) 03/26/18 16:00 Attending/Attestation - Attestation I have personally seen and examined this patient.: Yes I have fully participated in the care of the patient.: Yes I have reviewed all pertinent clinical information, including history, physical exam and plan: Yes Notes (Text): 03/29/18 14:03 Medical record note made by the resident after discussion with my direction and input after the patient was personally seen and examined by me. I have reviewed the chart and agree that the record accurately reflects by personal performance of the history, physical exam, data review, and medical decision-making, in the course for the patient. I have also personally directed the plan of care. 52 year old female with PMH of neurosarcoidosis, pulmonary sarcoidosis, glaucoma, migraines, neck and back pain s/p trauma and multiple surgeries, HTN and hyperlipidemia is admitted with syncope, etiology is due to orthostatic hypotension due to medication.There is no focal deficit.Anti hypertensive medications are on hold, blood pressure is running low.We will continue IV hydration,we will monitor. Case was discussed with Neurology. Management plan was discussed in detail with patient. Education was provided
[2018-03-27] MEDS: Sodium Chloride 0.9% 1,000 ML IV SCH ×3 (08:35→16:40)
[2018-03-27] MEDS: Pantoprazole 40 mg EC Tab PO SCH (09:17)
[2018-03-27] MEDS ORDERED: HYDROCHLOROTHIAZIDE PO SCH (10:00)
[2018-03-27] MEDS ORDERED: AMLODIPINE PO SCH (10:00)
[2018-03-27] MEDS ORDERED: VALSARTAN PO SCH (10:00)
[2018-03-27] MEDS ORDERED: [UNRECOGNIZED DRUG - OTHER] PO SCH (10:00)
--- NOTE | 2018-03-27 10:01 | CP.PCM.CON ---
History of Present Illness - History of Present Illness History of Present Illness: Neurology Consultation Note: Mrs. Anu Casillas is a 52-year-old woman with presumed neurosarcoidosis vs MS, pulmonary sarcoidosis, glaucoma, migraine headaches, cervical fusion with previous injuries/trauma, chronic vertigo, HTN, HLD who had developed dizziness and confusion at home. 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 She does not recall exactly what happened. She is a patient of Dr. Lou, who requested evaluation by neurohospitalist to determine if there are any new concerns. I reviewed the recent MRI of the brain, and although there are chronic appearing T2 hyperintensities and "black hole" lesions consistent with MS, the temporal lobes appear to also be slightly hyperintense bilaterally. The patient reported other episodes of confusion that occurred in the past where she also has panic attacks. Review of Systems - Review of Systems All systems: reviewed and no additional remarkable complaints except Past Patient History - Infectious Disease Hx of Infectious Diseases: None - Past Social History Smoking Status: Never Smoked - CARDIAC Hx Cardiac Disorders: Yes Hx Hypertension: Yes - PULMONARY Hx Respiratory Disorders: Yes (pulmonary sarcardosis) Other/Comment: chronic cough every year from november to april "dry annoying cough" pt stated - NEUROLOGICAL Hx Neurological Disorder: Yes (neurosarcardosis) Hx Migraine: Yes (headaches) Other/Comment: left leg drags - HEENT Hx HEENT Problems: Yes Hx Cataracts: Yes Hx Glaucoma: Yes Other/Comment: denies left ear hearing loss - RENAL Hx Chronic Kidney Disease: No - ENDOCRINE/METABOLIC Hx Endocrine Disorders: No - HEMATOLOGICAL/ONCOLOGICAL Hx Blood Disorders: No - INTEGUMENTARY Hx Dermatological Problems: Yes (LARGE SKIN DARKENED SKIN DISCOLORATION TO RIGHT SIDE OF FACE.BLACKENED) Hx Psoriasis: Yes Other/Comment: chronic dark nodules on skin pt has them removed but "they grow back" stated pt,dry patches of skin to elbows due to psoriasis, pt also gets dry patches to scalp - MUSCULOSKELETAL/RHEUMATOLOGICAL Hx Musculoskeletal Disorders: Yes Hx Back Pain: Yes Hx Herniated Disk: Yes Hx Unsteady Gait: Yes (cane) Other/Comment: C3-C5 FUSION DISC HERNIATION with plate and screws - GASTROINTESTINAL Hx Gastrointestinal Disorders: Yes (GASTRIC SLEEVE MAY 2016) Other/Comment: umbilical hernia, has had 3 umbilical hernia sx's as per pt but hernia keeps coming back - GENITOURINARY/GYNECOLOGICAL Hx Genitourinary Disorders: Yes (HYSTERECTOMY PARTIAL - 3 ABORTIONS,2 MISCARRIAGES) Other/Comment: chronic monthy vaginal yeast infections since 09/2017 c/o itch odor "feels drainage but it doesn't come out" pt stated. chronic intermittent swelling under b/l breasts since 2013 - PSYCHIATRIC Hx Psychophysiologic Disorder: No Hx Depression: No Hx Emotional Abuse: No Hx Physical Abuse: No - SURGICAL HISTORY Hx Hysterectomy: Yes (PARTIAL) Other/Comment: gastric sleeve 2015. cervical fusion with plate and screws - ANESTHESIA Hx Anesthesia: Yes Hx Anesthesia Reactions: No Meds Allergies/Adverse Reactions: Allergies Allergy/AdvReac Type Severity Reaction Status Date / Time No Known Allergies Allergy Verified 08/08/16 21:49 - Medications Medications: Current Medications Acetaminophen/Butalbital/Caffeine (Fioricet) 1 tab PO Q4H PRN PRN Reason: Headache Last Admin: 03/27/18 09:17 Dose: 1 tab Atorvastatin Calcium (Lipitor) 80 mg PO DIN [facility] Sodium Chloride (Sodium Chloride 0.9%) 1,000 mls @ 125 mls/hr IV .Q8H [facility] Last Admin: 03/27/18 08:35 Dose: Not Given Oxycodone/Acetaminophen (Percocet 5/325 Mg Tab) 1 tab PO Q6 PRN PRN Reason: PAIN, SEVERE [8-10] Stop: 03/29/18 21:51 Last Admin: 03/26/18 23:12 Dose: 1 tab Pantoprazole Sodium (Protonix Ec Tab) 40 mg PO DAILY [facility] Last Admin: 03/27/18 09:17 Dose: 40 mg Physical Exam - Neurological Exam Neurological exam: Alert, CN II-XII Intact, Normal Gait, Oriented x3, Reflexes Normal - Psychiatric Exam Psychiatric exam: Normal Affect, Normal Mood Results - Vital Signs Recent Vital Signs: Last Vital Signs Temp 98.2 F 03/27/18 06:00 Pulse 56 L 03/27/18 06:00 Resp 22 03/27/18 06:00 BP 95/62 L 03/27/18 06:00 Pulse Ox 100 03/27/18 06:00 - Labs Result Diagrams: 03/27/18 07:00 03/27/18 07:00 Labs: Laboratory Results - last 24 hr 03/26/18 03/27/18 03/27/18 21:43 07:00 07:00 WBC 5.6 D RBC 3.76 Hgb 10.7 L Hct 32.9 L MCV 87.5 MCH 28.5 MCHC 32.5 RDW 11.8 Plt Count 192 MPV 10.3 Gran % 34.9 L Lymph % (Auto) 54.[address] % (Auto) 8.2 H Eos % (Auto) 2.3 Baso % (Auto) 0.5 Gran # 1.95 Lymph # (Auto) 3.0 [place] # (Auto) 0.5 Eos # (Auto) 0.1 Baso # (Auto) 0.03 Sodium Potassium Chloride Carbon Dioxide Anion Gap BUN Creatinine Est GFR ( Amer) Est GFR (Non-Af Amer) Random Glucose Calcium Phosphorus Magnesium Total Bilirubin AST ALT Alkaline Phosphatase Troponin I Total Protein Albumin Globulin Albumin/Globulin Ratio TSH 3rd Generation 0.66 Urine Color Yellow Urine Appearance Clear Urine pH 5.5 Ur Specific [place] >= 1.030 Urine Protein Negative Urine Glucose (UA) Negative Urine Ketones Trace H Urine Blood Negative Urine Nitrate Negative Urine Bilirubin Negative Urine Urobilinogen 0.2 Ur Leukocyte Esterase Negative 03/27/18 07:00 WBC RBC Hgb Hct MCV MCH MCHC RDW Plt Count MPV Gran % Lymph % (Auto) [place] % (Auto) Eos % (Auto) Baso % (Auto) Gran # Lymph # (Auto) [place] # (Auto) Eos # (Auto) Baso # (Auto) Sodium 144 Potassium 4.6 Chloride 106 Carbon Dioxide 31 Anion Gap 12 BUN 20 Creatinine 0.9 Est GFR ( Amer) > 60 Est GFR (Non-Af Amer) > 60 Random Glucose 81 Calcium 9.3 Phosphorus 3.2 Magnesium 1.9 Total Bilirubin 0.3 AST 24 ALT 26 Alkaline Phosphatase 66 Troponin I < 0.01 Total Protein 6.3 Albumin 3.6 Globulin 2.7 Albumin/Globulin Ratio 1.3 TSH 3rd Generation Urine Color Urine Appearance Urine pH Ur Specific [place] Urine Protein Urine Glucose (UA) Urine Ketones Urine Blood Urine Nitrate Urine Bilirubin Urine Urobilinogen Ur Leukocyte Esterase Assessment & Plan (1) Confusion and disorientation Assessment and Plan: Based on the history, the patient may have had a complex partial seizure. I recommend obtaining an EEG for further evaluation and if normal, follow up with Dr. Lou as an outpatient. If abnormal, we will start her on an AED. Status: Acute (2) Near syncope Assessment and Plan: Likely due to orthostatic hypotension. Status: Acute
[2018-03-27] MEDS ORDERED: Gadodiamide 287 MG/ML VIAL (15ML) IV ONE (10:23)
[2018-03-27] MEDS: Oxycodone/Acetaminophen 5/325 mg Tab PO PRN (11:24)
--- NOTE | 2018-03-27 13:11 | CARD ---
APPROVED REPORT EKG Measurement Heart [id number] <Conclusion> Normal sinus rhythm Normal ECG
--- NOTE | 2018-03-27 14:13 | MRI ---
PROCEDURE: MR CERVICAL SPINE WITH AND WITHOUT CONTRAST HISTORY: evaluate for demyelinating process COMPARISON: None available. TECHNIQUE: Multiecho multiplanar sequences were performed through the cervical spine with and without the use of intravenous contrast. FINDINGS: Straightened cervical curvature without definite interval acute spondylolisthesis or acute fracture appreciable. C3-4 cyst fusion anteriorly stable lies is a grade 1 spondylolisthesis at C3-4. Overall appearance is not significantly changed in the interval. No suspicious spinal cord signal changes in the interval with the cord remain normal course caliber contour and intrinsic signal although artifacts at C3 and C4 levels obscured anterior cord surface at the same levels. A benign hemangioma is reiterated at the C6 vertebral body anteriorly once again with remaining Marrow signal otherwise stable in appearance as well. No suspicious prevertebral paraspinal soft tissue findings. C2-3: No disc herniation, spinal canal stenosis or neural foraminal narrowing. C3-4: Limited thickening of the posterior longitudinal ligament is seen posterior to C4 encroaching the ventral nerve roots without significant stenosis. No neural foraminal stenosis bilaterally. C4-5: Limited disc bulge encroaches ventral nerve roots causing borderline central stenosis. No significant neural foraminal stenosis bilaterally. C5-C6: No disc herniation, spinal canal stenosis or neural foraminal narrowing. C6-C7: No disc herniation, spinal canal stenosis or neuroforaminal narrowing. Minimal disc bulge noted. C7-T1: No disc herniation, spinal canal stenosis or neural foraminal narrowing. OTHER FINDINGS: None. IMPRESSION: Stable appearing cervical spine status post anterior fusion at C3-4 with no suspicious interval cord signal abnormality identified. Ventral nerve roots are encroached by posterior longitudinal ligament hypertrophy at C3-4 and disc bulge at C4-5 without moderate or severe stenosis resulting. Borderline C4-5 degenerative stenosis identified.
[2018-03-27] MEDS ORDERED: oxyCODONE 30 mg Immediate Release Tab PO PRN ×2 (16:57→17:06)
--- NOTE | 2018-03-27 17:32 | CP.PCM.PN ---
<Yvon Steiner - Last Filed: 03/27/18 17:33> Subjective - Date & Time of Evaluation Date of Evaluation: 03/27/18 Time of Evaluation: 07:45 - Subjective Subjective: Patient seen and examined at bedside in no acute distress. Aside from chronic headache, patient offers no complaints at this time. Denies shortness of breath , chest pain, dizziness, abdominal pain, nausea, vomiting, diarrhea, cough, fevers, chills. Objective - Vital Signs/Intake and Output Vital Signs (last 24 hours): Temp Pulse Resp BP Pulse Ox 97.1 F L 46 L 21 101/64 100 03/27/18 12:00 03/27/18 14:00 03/27/18 12:00 03/27/18 12:00 03/27/18 06:00 Intake and Output: 03/27/18 03/27/18 06:59 18:59 Intake Total 480 760 Balance 480 760 - Medications Medications: Current Medications Acetaminophen/Butalbital/Caffeine (Fioricet) 1 tab PO Q4H PRN PRN Reason: Headache Last Admin: 03/27/18 09:17 Dose: 1 tab Atorvastatin Calcium (Lipitor) 80 mg PO DIN [facility] Last Admin: 03/27/18 16:39 Dose: 80 mg Sodium Chloride (Sodium Chloride 0.9%) 1,000 mls @ 125 mls/hr IV .Q8H [facility] Last Admin: 03/27/18 16:40 Dose: Not Given Oxycodone HCl (Oxycodone Immediate Release Tab) 20 mg PO Q6H PRN PRN Reason: Pain, severe (8-10) Pantoprazole Sodium (Protonix Ec Tab) 40 mg PO DAILY [facility] Last Admin: 03/27/18 09:17 Dose: 40 mg - Labs Labs: 03/27/18 07:00 03/27/18 07:00 PT 12.7 SECONDS (9.4-12.5) H 03/26/18 16:00 INR 1.11 (0.93-1.08) H 03/26/18 16:00 APTT 27.0 Seconds (25.1-36.5) 03/26/18 16:00 - Head Exam Head Exam: ATRAUMATIC, NORMAL INSPECTION, NORMOCEPHALIC - Eye Exam Eye Exam: EOMI, Normal appearance - ENT Exam ENT Exam: Mucous Membranes Moist - Respiratory Exam Respiratory Exam: Clear to Ausculation Bilateral, NORMAL BREATHING PATTERN. absent: Rhonchi, Wheezes - Cardiovascular Exam Cardiovascular Exam: REGULAR RHYTHM, +S1, +S2 - GI/Abdominal Exam GI & Abdominal Exam: Soft, Normal Bowel Sounds - Neurological Exam Neurological Exam: Alert, Awake, Oriented x3 Neuro motor strength exam: Left Upper Extremity: 4, Right Upper Extremity: 4, Left Lower Extremity: 4, Right Lower Extremity: 4 - Psychiatric Exam Psychiatric exam: Normal Affect, Normal Mood - Skin Skin Exam: Normal Color, Warm Assessment and Plan - Assessment and Plan (Free Text) Assessment: This is a 52 year old female with PMHx neurosarcoidosis, pulmonary sarcoidosis, glaucoma, migraines, neck and back pain s/p trauma and multiple surgeries, vertigo, HTN, HLD who presented complaining of dizziness and confusion which have both resolved. Plan: Dizziness secondary to orthostatic hypotension -MRI brain shows possible stable demyelinating disease process -Neurology was consulted and requested MRI of the cervical which revealed borderline C4-C5 degenerative stenosis, and thoracic spine which is still pending -Orthostatic vitals performed in the ED was positive -EEG ordered per neurology recommendations -Carotid US ordered; results pending -Echocardiogram ordered -troponin negative History of HTN -resumed home meds (Exforge) History of HLD -lipid panel is within normal limits -Continue statin History of headaches -Continue fioricet Prophylaxis -SCDs -Protonix Case discussed and reviewed with Dr. Servando Steiner PGY1 <Tono Al - Last Filed: 03/27/18 18:41> Objective - Vital Signs/Intake and Output Vital Signs (last 24 hours): Temp Pulse Resp BP Pulse Ox 97.1 F L 46 L 21 101/64 100 03/27/18 12:00 03/27/18 14:00 03/27/18 12:00 03/27/18 12:00 03/27/18 06:00 Intake and Output: 03/27/18 03/27/18 06:59 18:59 Intake Total 480 760 Balance 480 760 - Medications Medications: Current Medications Acetaminophen/Butalbital/Caffeine (Fioricet) 1 tab PO Q4H PRN PRN Reason: Headache Last Admin: 03/27/18 09:17 Dose: 1 tab Atorvastatin Calcium (Lipitor) 80 mg PO DIN [facility] Last Admin: 03/27/18 16:39 Dose: 80 mg Oxycodone HCl (Oxycodone Immediate Release Tab) 20 mg PO Q6 PRN PRN Reason: PAIN, SEVERE [8-10] Pantoprazole Sodium (Protonix Ec Tab) 40 mg PO DAILY [facility] Last Admin: 03/27/18 09:17 Dose: 40 mg - Labs Labs: 03/27/18 07:00 03/27/18 07:00 PT 12.7 SECONDS (9.4-12.5) H 03/26/18 16:00 INR 1.11 (0.93-1.08) H 03/26/18 16:00 APTT 27.0 Seconds (25.1-36.5) 03/26/18 16:00 Attending/Attestation - Attestation I have personally seen and examined this patient.: Yes I have fully participated in the care of the patient.: Yes I have reviewed all pertinent clinical information, including history, physical exam and plan: Yes Notes (Text): 03/27/18 18:41 Medical record note made by the resident after discussion with my direction and input after the patient was personally seen and examined by me. I have reviewed the chart and agree that the record accurately reflects by personal performance of the history, physical exam, data review, and medical decision-making, in the course for the patient. I have also personally directed the plan of care.
--- NOTE | 2018-03-27 18:11 | US ---
PROCEDURE: Bilateral carotid artery duplex ultrasound HISTORY: Carotid stenosis PHYSICIAN(S): Terrell Yeboah MD. TECHNIQUE: Duplex sonography and color-flow Doppler were used to evaluate the carotid bifurcations and limited segments of the vertebral arteries bilaterally. FINDINGS: There is mild smooth hypoechoic plaque noted at the carotid bifurcations bilaterally. The peak systolic velocity in the proximal right internal carotid artery is 98 cm/sec. This corresponds to a 20 to 39% proximal right ICA stenosis. Normal systolic velocities are noted in the proximal right external carotid artery. There is antegrade flow in the right vertebral artery. The peak systolic velocity in the proximal left internal carotid artery is 84 cm/sec. This corresponds to a 20 to 39% proximal left ICA stenosis. Normal systolic velocities are noted in the proximal left external carotid artery. There is antegrade flow in the left vertebral artery. IMPRESSION: 1. Bilateral 20-39% proximal ICA stenoses. 2. Antegrade flow in both vertebral arteries.
--- NOTE | 2018-03-27 18:19 | MRI ---
PROCEDURE: MR THORACIC SPINE WITH AND WITHOUT CONTRAST HISTORY: evaluate for demyelinating disease COMPARISON: None available. TECHNIQUE: Multiecho multiplanar sequences were performed through the thoracic spine with and without the use of intravenous contrast. FINDINGS: ALIGNMENT: Normal thoracic spinal alignment. Normal thoracic kyphosis. VERTEBRA: Vertebral body height are preserved. MARROW: Marrow signal unremarkable. PARASPINAL SOFT TISSUES: Unremarkable. CORD: Unremarkable thoracic cord. No volume loss, signal abnormality or syrinx. DISCS: No disc herniation, spinal canal stenosis, or neuroforaminal narrowing. ENHANCEMENT: Moderate lymph node enhancement noted and right per perihilar/ infrahilar region incidentally. No abnormal intrathecal or epidural enhancement appreciated. OTHER FINDINGS: None. IMPRESSION: No stenosis, disc herniation or definite cord abnormality appreciated. Right parahilar/infrahilar lymphadenopathy identified incidentally.
[2018-03-27] MEDS: oxyCODONE 10 mg Immediate Release Tab PO PRN (18:51)
--- NOTE | 2018-03-27 19:34 | CP.PCM.PN ---
<Tamara Jaquez - Last Filed: 03/27/18 19:43> Subjective - Date & Time of Evaluation Date of Evaluation: 03/27/18 Time of Evaluation: 18:30 - Subjective Subjective: PGY-[address] Al CC: Swelling under L breast Sadia Lentz, 52 year old female with PMHx neurosarcoidosis, pulmonary sarcoidosis, glaucoma, migraines, neck and back pain s/p trauma and multiple surgeries, vertigo, HTN, HLD admitted for dizziness. 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 she used to have swelling/rash underneath her breast about 4 time a year, which self resolved, no itchiness/pain/bleed. Today she felt a slight swelling under her L breast, which was similar to her prior skin swelling episodes. thoracic mri w/wo gabriela showed R parahilar/infrahilae lymphadenopathy VS-stable Gen-NAD HEENT- EOMI, non-icteric Card-regular s1 s2 pulm- cta b/l abd-soft ntnd skin-(+) slight swelling underneath L breast (circled by surgical marker 4 inch x 2 inch), no erythema, no increase temperature Elbow had nodules b/l, no ulcer/erosin/bleed individual non-bleeding, slightly raised nodule on RUQ abdomin A/P Likely Skin manifestation of sarcoidosis May be related to R parahilar/infrahilae lymphadenopathy Doubt abscess, rash (allergic vs fungal), cellulitis - Observe off antifungal and antibiotics - managed per primary team Objective - Vital Signs/Intake and Output Vital Signs (last 24 hours): Temp Pulse Resp BP Pulse Ox 97.9 F 60 21 109/59 L 100 03/27/18 18:00 03/27/18 18:00 03/27/18 18:00 03/27/18 18:00 03/27/18 06:00 Intake and Output: 03/27/18 03/28/18 18:59 06:59 Intake Total 760 Balance 760 - Medications Medications: Current Medications Acetaminophen/Butalbital/Caffeine (Fioricet) 1 tab PO Q4H PRN PRN Reason: Headache Last Admin: 03/27/18 09:17 Dose: 1 tab Atorvastatin Calcium (Lipitor) 80 mg PO DIN [facility] Last Admin: 03/27/18 16:39 Dose: 80 mg Oxycodone HCl (Oxycodone Immediate Release Tab) 20 mg PO Q6 PRN PRN Reason: PAIN, SEVERE [8-10] Last Admin: 03/27/18 18:51 Dose: 20 mg Pantoprazole Sodium (Protonix Ec Tab) 40 mg PO DAILY [facility] Last Admin: 03/27/18 09:17 Dose: 40 mg - Labs Labs: 03/27/18 07:00 03/27/18 07:00 PT 12.7 SECONDS (9.4-12.5) H 03/26/18 16:00 INR 1.11 (0.93-1.08) H 03/26/18 16:00 APTT 27.0 Seconds (25.1-36.5) 03/26/18 16:00 <Tono Al - Last Filed: 03/29/18 14:02> Objective - Vital Signs/Intake and Output Vital Signs (last 24 hours): Temp Pulse Resp BP Pulse Ox 97.1 F L 52 L 21 138/74 100 03/28/18 12:00 03/28/18 14:00 03/28/18 12:00 03/28/18 12:00 03/28/18 06:00 - Labs Labs: 03/28/18 05:30 03/28/18 05:30 PT 12.7 SECONDS (9.4-12.5) H 03/26/18 16:00 INR 1.11 (0.93-1.08) H 03/26/18 16:00 APTT 27.0 Seconds (25.1-36.5) 03/26/18 16:00 Attending/Attestation - Attestation I have personally seen and examined this patient.: Yes I have fully participated in the care of the patient.: Yes I have reviewed all pertinent clinical information, including history, physical exam and plan: Yes Notes (Text): 03/29/18 14:00 Medical record note made by the resident after discussion with my direction and input after the patient was personally seen and examined by me. I have reviewed the chart and agree that the record accurately reflects by personal performance of the history, physical exam, data review, and medical decision-making, in the course for the patient. I have also personally directed the plan of care.
[2018-03-28] MEDS: oxyCODONE 10 mg Immediate Release Tab PO PRN ×2 (03:34→13:03)
[2018-03-28 06:23] LABS: BASO # 0.03 K/mm3 (0.0-2.0); BASO % 0.6 % (0.0-3.0); EOS # 0.2 (0.0-0.7); EOS % 3.9 % (1.5-5.0); GRAN # 1.4 (1.4-6.5); GRAN % 28.7 % (50.0-68.0); LYMPH # 2.8 (1.2-3.4); LYMPH % 57.8 % (22.0-35.0); MEAN CELL VOLUME 87.7 fl (80.0-105.0); MEAN CORPUSCULAR HEMOGLOBIN 28.9 pg (25.0-35.0); MEAN CORPUSCULAR HGB CONC 32.9 g/dl (31.0-37.0); MEAN PLATELET VOLUME 10.7 fl (7.0-11.0); MONO # 0.4 (0.1-0.6); RBC 3.81 10^6/uL (3.5-6.1); WHITE BLOOD COUNT 4.9 10^3/ul (4.5-11.0)
[2018-03-28 06:42] VITALS: O2SAT 100
[2018-03-28 07:11] LABS: ALB/GLOB RATIO 1.3 (1.1-1.8); ALBUMIN 3.6 g/dL (3.0-4.8); ALT/SGPT 24 U/L (7-56); AST/SGOT 37 U/L (14-36); BLOOD UREA NITROGEN 19 mg/dL (7-21); CALCIUM 9.3 mg/dL (8.4-10.5); GFR AFRICAN-AMERICAN > 60; GFR NON-AFRICAN AMERICAN 58
[2018-03-28] MEDS: Pantoprazole 40 mg EC Tab PO SCH (10:33)
--- NOTE | 2018-03-28 11:39 | CP.PCM.DIS ---
<Yvon Steiner - Last Filed: 03/28/18 13:59> Provider - Provider Date of Admission: 03/26/18 18:49 Attending physician: Tono Al MD Primary care physician: NO FAMILY PROVIDER Consults: Neurology: Dr. Ramos Time Spent in preparation of Discharge (in minutes): 40 Diagnosis - Discharge Diagnosis (1) Syncope Status: Acute Priority: High (2) Confusion and disorientation Status: Acute Priority: High (3) Neurosarcoidosis Status: Chronic Priority: Medium (4) Headache Status: Chronic Priority: Medium (5) Orthostatic hypotension Status: Acute Priority: Medium Hospital Course - Lab Results Lab Results: Most Recent Lab Values WBC 4.9 10^3/ul (4.5-11.0) 03/28/18 05:30 RBC 3.81 10^6/uL (3.5-6.1) 03/28/18 05:30 Hgb 11.0 g/dL (12.0-16.0) L 03/28/18 05:30 Hct 33.4 % (36.0-48.0) L 03/28/18 05:30 MCV 87.7 fl (80.0-105.0) 03/28/18 05:30 MCH 28.9 pg (25.0-35.0) 03/28/18 05:30 MCHC 32.9 g/dl (31.0-37.0) 03/28/18 05:30 RDW 12.0 % (11.5-14.5) 03/28/18 05:30 Plt Count 195 10^3/uL (120.0-450.0) 03/28/18 05:30 MPV 10.7 fl (7.0-11.0) 03/28/18 05:30 Gran % 28.7 % (50.0-68.0) L 03/28/18 05:30 Lymph % (Auto) 57.8 % (22.0-35.0) H 03/28/18 05:30 [place] % (Auto) 9.0 % (1.0-6.0) H 03/28/18 05:30 Eos % (Auto) 3.9 % (1.5-5.0) 03/28/18 05:30 Baso % (Auto) 0.6 % (0.0-3.0) 03/28/18 05:30 Gran # 1.40 (1.4-6.5) 03/28/18 05:30 Lymph # (Auto) 2.8 (1.2-3.4) 03/28/18 05:30 [place] # (Auto) 0.4 (0.1-0.6) 03/28/18 05:30 Eos # (Auto) 0.2 (0.0-0.7) 03/28/18 05:30 Baso # (Auto) 0.03 K/mm3 (0.0-2.0) 03/28/18 05:30 PT 12.7 SECONDS (9.4-12.5) H 03/26/18 16:00 INR 1.11 (0.93-1.08) H 03/26/18 16:00 APTT 27.0 Seconds (25.1-36.5) 03/26/18 16:00 Sodium 143 mmol/L (132-148) 03/28/18 05:30 Potassium 4.4 mmol/L (3.6-5.0) 03/28/18 05:30 Chloride 105 mmol/L (98-107) 03/28/18 05:30 Carbon Dioxide 31 mmol/L (21-33) 03/28/18 05:30 Anion Gap 11 (10-20) 03/28/18 05:30 BUN 19 mg/dL (7-21) 03/28/18 05:30 Creatinine 1.0 mg/dl (0.7-1.2) 03/28/18 05:30 Est GFR ( Amer) > 60 03/28/18 05:30 Est GFR (Non-Af Amer) 58 03/28/18 05:30 Random Glucose 75 mg/dL (70-110) 03/28/18 05:30 Hemoglobin A1c 5.4 % (4.2-6.5) 03/26/18 16:31 Calcium 9.3 mg/dL (8.4-10.5) 03/28/18 05:30 Phosphorus 3.2 mg/dL (2.5-4.5) 03/27/18 07:00 Magnesium 1.9 mg/dL (1.7-2.2) 03/27/18 07:00 Total Bilirubin 0.2 mg/dL (0.2-1.3) 03/28/18 05:30 AST 37 U/L (14-36) H D 03/28/18 05:30 ALT 24 U/L (7-56) 03/28/18 05:30 Alkaline Phosphatase 65 U/L (38-126) 03/28/18 05:30 Troponin I < 0.01 ng/mL 03/27/18 07:00 Total Protein 6.4 g/dL (5.8-8.3) 03/28/18 05:30 Albumin 3.6 g/dL (3.0-4.8) 03/28/18 05:30 Globulin 2.8 gm/dL 03/28/18 05:30 Albumin/Globulin Ratio 1.3 (1.1-1.8) 03/28/18 05:30 Triglycerides 68 mg/dL (35-160) 03/26/18 16:00 Cholesterol 190 mg/dL (130-200) 03/26/18 16:00 LDL Cholesterol Direct 77 mg/dL (0-129) 03/26/18 16:00 HDL Cholesterol 88 mg/dL (29-60) H 03/26/18 16:00 Vitamin B12 857 pg/mL (239-931) 03/27/18 07:00 Folate 10.0 ng/mL 03/27/18 07:00 TSH 3rd Generation 0.66 mIU/mL (0.46-4.68) 03/27/18 07:00 Urine Color Yellow (YELLOW) 03/26/18 21:43 Urine Appearance Clear (CLEAR) 03/26/18 21:43 Urine pH 5.5 (4.7-8.0) 03/26/18 21:43 Ur Specific [place] >= 1.030 (1.005-1.035) 03/26/18 21:43 Urine Protein Negative mg/dL (<30 mg/dL) 03/26/18 21:43 Urine Glucose (UA) Negative mg/dL (NEGATIVE) 03/26/18 21:43 Urine Ketones Trace mg/dL (NEGATIVE) H 03/26/18 21:43 Urine Blood Negative (NEGATIVE) 03/26/18 21:43 Urine Nitrate Negative (NEGATIVE) 03/26/18 21:43 Urine Bilirubin Negative (NEGATIVE) 03/26/18 21:43 Urine Urobilinogen 0.2 E.U./dL (<1 E.U./dL) 03/26/18 21:43 Ur Leukocyte Esterase Negative Jatin/uL (NEGATIVE) 03/26/18 21:43 Blood Type B POSITIVE 03/26/18 16:12 Blood Type Confirm B POSITIVE 03/26/18 16:55 Antibody Screen Negative 03/26/18 16:12 BBK History Checked No verified bt 03/26/18 16:12 - Hospital Course Hospital Course: This is a 52 year old female with PMHx neurosarcoidosis, pulmonary sarcoidosis, glaucoma, migraines, neck and back pain s/p trauma and multiple surgeries, vertigo, HTN, HLD who presented complaining of dizziness. This has been ongoing for the past two weeks and is worsened when rising from a seated position. Patient states that at the dizziness worsened yesterday. At around 1:30-2:00 early this morning, the patient was trying to go to the bathroom but ended up in her closet, unsure of what happened. Patient then went to the bathroom where she was believes that she might have passed out. Per , patient was unconscious for less than a minute. Upon admission to the emergency department patient was found to have orthostatic hypotension most likely secondary to medication as patient was taking a 3 medication combination antihypertensive. After discontinuing the medication patient was relieved of her initial symptoms. Patient's exforge will be changed to amlodipine only with further follow up with her PMD. Patient was also endorsed slight confusion prior to her syncopal episode which was most likely due to taking her oxycodone however neurology was consulted considering her history of neurosarcoidosis. EEG was ordered by neurology for further evaluation but with resolving of symptoms patient was cleared for discharge from a neurological standpoint. Patient was educated to maintain a normal sodium diet as well as to keep hydrated. Patient was also instructed to wait two minutes at the edge of the bed before getting up and waiting another thirty seconds when standing up before walking. Patient was in agreement with plan and then discharged. Case discussed with Dr. Servando Steiner PGY1 Discharge Exam - Head Exam Head Exam: ATRAUMATIC, NORMAL INSPECTION, NORMOCEPHALIC - Eye Exam Eye Exam: EOMI. absent: Normal appearance (darkening of skin around right eye) - Respiratory Exam Respiratory Exam: Clear to PA & Lateral, UNREMARKABLE - Cardiovascular Exam Cardiovascular Exam: REGULAR RHYTHM, +S1, +S2 - GI/Abdominal Exam GI & Abdominal Exam: Normal Bowel Sounds, Unremarkable - Extremities Exam Extremities exam: normal inspection - Neurological Exam Neurological exam: Alert, CN II-XII Intact, Oriented x3 - Psychiatric Exam Psychiatric exam: Normal Affect, Normal Mood - Skin Skin Exam: Normal Color, Warm Discharge Plan - Discharge Medications Prescriptions: amLODIPine [Norvasc] 5 mg PO DAILY #14 tab - Follow Up Plan Condition: FAIR Disposition: HOME/ ROUTINE Instructions: Orthostatic Hypotension (DC), Amlodipine, Syncope (DC) Additional Instructions: 1.Please follow up with your PMD within 1 week. 2.Follow up with neurologist Dr. Ramos within 2 weeks for further evaluation and interpretation of EEG. 3.Your 3 pill combination blood pressure medication exforge has been discontinued; please stop taking it and instead begin taking Amlodipine 5 mg. 4.Please maintain a normal sodium diet as well as to keep hydrated. 5.Also keep in mind to wait two minutes at the edge of the bed before getting up and waiting another thirty seconds when standing up before walking. Referrals: FAMILY PROVIDER,JOB [Primary Care Provider] - Collins Ramos MD [Staff Provider] - <Tono Al - Last Filed: 03/29/18 14:16> Provider - Provider Date of Admission: 03/26/18 18:49 Attending physician: Tono Al MD Primary care physician: JOB FAMILY PROVIDER Hospital Course - Lab Results Lab Results: Most Recent Lab Values WBC 4.9 10^3/ul (4.5-11.0) 03/28/18 05:30 RBC 3.81 10^6/uL (3.5-6.1) 03/28/18 05:30 Hgb 11.0 g/dL (12.0-16.0) L 03/28/18 05:30 Hct 33.4 % (36.0-48.0) L 03/28/18 05:30 MCV 87.7 fl (80.0-105.0) 03/28/18 05:30 MCH 28.9 pg (25.0-35.0) 03/28/18 05:30 MCHC 32.9 g/dl (31.0-37.0) 03/28/18 05:30 RDW 12.0 % (11.5-14.5) 03/28/18 05:30 Plt Count 195 10^3/uL (120.0-450.0) 03/28/18 05:30 MPV 10.7 fl (7.0-11.0) 03/28/18 05:30 Gran % 28.7 % (50.0-68.0) L 03/28/18 05:30 Lymph % (Auto) 57.8 % (22.0-35.0) H 03/28/18 05:30 [place] % (Auto) 9.0 % (1.0-6.0) H 03/28/18 05:30 Eos % (Auto) 3.9 % (1.5-5.0) 03/28/18 05:30 Baso % (Auto) 0.6 % (0.0-3.0) 03/28/18 05:30 Gran # 1.40 (1.4-6.5) 03/28/18 05:30 Lymph # (Auto) 2.8 (1.2-3.4) 03/28/18 05:30 [place] # (Auto) 0.4 (0.1-0.6) 03/28/18 05:30 Eos # (Auto) 0.2 (0.0-0.7) 03/28/18 05:30 Baso # (Auto) 0.03 K/mm3 (0.0-2.0) 03/28/18 05:30 PT 12.7 SECONDS (9.4-12.5) H 03/26/18 16:00 INR 1.11 (0.93-1.08) H 03/26/18 16:00 APTT 27.0 Seconds (25.1-36.5) 03/26/18 16:00 Sodium 143 mmol/L (132-148) 03/28/18 05:30 Potassium 4.4 mmol/L (3.6-5.0) 03/28/18 05:30 Chloride 105 mmol/L (98-107) 03/28/18 05:30 Carbon Dioxide 31 mmol/L (21-33) 03/28/18 05:30 Anion Gap 11 (10-20) 03/28/18 05:30 BUN 19 mg/dL (7-21) 03/28/18 05:30 Creatinine 1.0 mg/dl (0.7-1.2) 03/28/18 05:30 Est GFR ( Amer) > 60 03/28/18 05:30 Est GFR (Non-Af Amer) 58 03/28/18 05:30 Random Glucose 75 mg/dL (70-110) 03/28/18 05:30 Hemoglobin A1c 5.4 % (4.2-6.5) 03/26/18 16:31 Calcium 9.3 mg/dL (8.4-10.5) 03/28/18 05:30 Phosphorus 3.2 mg/dL (2.5-4.5) 03/27/18 07:00 Magnesium 1.9 mg/dL (1.7-2.2) 03/27/18 07:00 Total Bilirubin 0.2 mg/dL (0.2-1.3) 03/28/18 05:30 AST 37 U/L (14-36) H D 03/28/18 05:30 ALT 24 U/L (7-56) 03/28/18 05:30 Alkaline Phosphatase 65 U/L (38-126) 03/28/18 05:30 Troponin I < 0.01 ng/mL 03/27/18 07:00 Total Protein 6.4 g/dL (5.8-8.3) 03/28/18 05:30 Albumin 3.6 g/dL (3.0-4.8) 03/28/18 05:30 Globulin 2.8 gm/dL 03/28/18 05:30 Albumin/Globulin Ratio 1.3 (1.1-1.8) 03/28/18 05:30 Triglycerides 68 mg/dL (35-160) 03/26/18 16:00 Cholesterol 190 mg/dL (130-200) 03/26/18 16:00 LDL Cholesterol Direct 77 mg/dL (0-129) 03/26/18 16:00 HDL Cholesterol 88 mg/dL (29-60) H 03/26/18 16:00 Vitamin B12 857 pg/mL (239-931) 03/27/18 07:00 Folate 10.0 ng/mL 03/27/18 07:00 TSH 3rd Generation 0.66 mIU/mL (0.46-4.68) 03/27/18 07:00 Urine Color Yellow (YELLOW) 03/26/18 21:43 Urine Appearance Clear (CLEAR) 03/26/18 21:43 Urine pH 5.5 (4.7-8.0) 03/26/18 21:43 Ur Specific [place] >= 1.030 (1.005-1.035) 03/26/18 21:43 Urine Protein Negative mg/dL (<30 mg/dL) 03/26/18 21:43 Urine Glucose (UA) Negative mg/dL (NEGATIVE) 03/26/18 21:43 Urine Ketones Trace mg/dL (NEGATIVE) H 03/26/18 21:43 Urine Blood Negative (NEGATIVE) 03/26/18 21:43 Urine Nitrate Negative (NEGATIVE) 03/26/18 21:43 Urine Bilirubin Negative (NEGATIVE) 03/26/18 21:43 Urine Urobilinogen 0.2 E.U./dL (<1 E.U./dL) 03/26/18 21:43 Ur Leukocyte Esterase Negative Jatin/uL (NEGATIVE) 03/26/18 21:43 Blood Type B POSITIVE 03/26/18 16:12 Blood Type Confirm B POSITIVE 03/26/18 16:55 Antibody Screen Negative 03/26/18 16:12 BBK History Checked No verified bt 03/26/18 16:12 Attending/Attestation - Attestation I have personally seen and examined this patient.: Yes I have fully participated in the care of the patient.: Yes I have reviewed all pertinent clinical information, including history, physical exam and plan: Yes Notes (Text): 03/29/18 14:13 Medical record note made by the resident after discussion with my direction and input after the patient was personally seen and examined by me. I have reviewed the chart and agree that the record accurately reflects by personal performance of the history, physical exam, data review, and medical decision-making, in the course for the patient. I have also personally directed the plan of care. 52 year old female with PMH of neurosarcoidosis, pulmonary sarcoidosis, glaucoma, migraines, neck and back pain s/p trauma and multiple surgeries, HTN and hyperlipidemia was admitted with syncope, due to orthostatic hypotension due to medication.There is no focal deficit.Blood pressure is better , we will discontinue HCTZ and Diovan.We will start patient on Amlodipine.Patient MRI of cervical and thoracic spines were reviewed, Patient was given education about orthostatic hypotension. Patient is ambulatory at the time of discharge. Patient will be discharged home and will follow up EEG result with Neurology. Management plan was discussed in detail with patient. Education was provided
--- NOTE | 2018-03-28 12:03 | CP.PCM.PN ---
Subjective - Date & Time of Evaluation Date of Evaluation: 03/28/18 Time of Evaluation: 12:00 - Subjective Subjective: Ms. Anu Casillas was seen and examined at the bedside. She is alert, oriented in all spheres. She denies any headache, dizziness, lightheadedness, nausea or vomiting. She is able to ambulate within her room in steady gait. EEG done, explained to patient some of the patient safety such as driving once AED started , verbalizes understanding. There was no untoward events overnight. Objective - Vital Signs/Intake and Output Vital Signs (last 24 hours): Temp Pulse Resp BP Pulse Ox 97.7 F 40 L 22 127/64 100 03/28/18 06:00 03/28/18 10:00 03/28/18 06:00 03/28/18 06:00 03/28/18 06:00 Intake and Output: 03/28/18 03/28/18 06:59 18:59 Intake Total 480 Output Total 0 Balance 480 - Medications Medications: Current Medications Acetaminophen/Butalbital/Caffeine (Fioricet) 1 tab PO Q4H PRN PRN Reason: Headache Last Admin: 03/27/18 09:17 Dose: 1 tab Atorvastatin Calcium (Lipitor) 80 mg PO DIN ASHWINI Last Admin: 03/27/18 16:39 Dose: 80 mg Oxycodone HCl (Oxycodone Immediate Release Tab) 20 mg PO Q6 PRN PRN Reason: PAIN, SEVERE [8-10] Last Admin: 03/28/18 03:34 Dose: 20 mg Pantoprazole Sodium (Protonix Ec Tab) 40 mg PO DAILY [facility] Last Admin: 03/28/18 10:33 Dose: 40 mg Sodium Chloride (Leslie Nasal Roxton) 0 ml NS Q2H PRN PRN Reason: Nasal congestion - Labs Labs: 03/28/18 05:30 03/28/18 05:30 PT 12.7 SECONDS (9.4-12.5) H 03/26/18 16:00 INR 1.11 (0.93-1.08) H 03/26/18 16:00 APTT 27.0 Seconds (25.1-36.5) 03/26/18 16:00 - Constitutional Appears: No Acute Distress - Head Exam Head Exam: NORMAL INSPECTION - Eye Exam Pupil Exam: PERRL - Neurological Exam Neurological Exam: Alert, Awake, Oriented x3 Neuro motor strength exam: Left Upper Extremity: 5, Right Upper Extremity: 5, Left Lower Extremity: 5, Right Lower Extremity: 5 Additional comments: alert, oriented no neuro deficits. Assessment and Plan (1) Confusion and disorientation Assessment & Plan: Case discussed with Dr. Zuniga, continue all current medical, physical therapies. Pending EEG results, Recommend to follow up with an outpatient neurologist. The patient would like to follow up with Dr. Ramos at [address] [facility] [address], tel. [phone]. Status: Acute
[2018-03-28 14:34] VITALS: BP 138/74; RESP 21; TEMP 97.1
[2018-03-28 15:36] VITALS: PULSE 52
--- NOTE | 2018-03-29 09:57 | CARD ---
APPROVED REPORT EXAM: Two-dimensional and M-mode echocardiogram with Doppler and color Doppler. INDICATION ASSESS STRUCTURAL DEFECTS 2D DIMENSIONS Left Atrium (2D)3.7 (1.6-4.0cm)IVSd1.0 (0.7-1.1cm) LVDd4.4 (3.9-5.9cm)PWd1.0 (0.7-1.1cm) LVDs3.0 (2.5-4.0cm)FS (%) 31.9 % LVEF (%)60.2 (>50%) M-Mode DIMENSIONS Aortic Root2.40 (2.2-3.7cm)Aortic Cusp Exc.1.70 (1.5-2.0cm) Aortic Valve AoV Peak Uisfnblf566.0cm/Lakesha Peak GR.13mmHg Mitral Valve E/A ratio0.0 TDI E/Lateral E'0.0E/Medial E'0.0 Tricuspid Valve TR Peak [id number] [id number] Peak Gr.23mmHg [id number] LEFT VENTRICLE There is normal left ventricular wall thickness. The left ventricular function is normal.EF-55-60% There is normal LV segmental wall motion. Transmitral Doppler flow pattern is Grade III-reversible restrictive diastolic dysfunction. No left ventricle thrombus noted on this study. There is no ventricular septal defect visualized. There is no left ventricular aneurysm. There is no mass noted in the left ventricle. RIGHT VENTRICLE The right ventricle is normal size. There is normal right ventricular wall thickness. The right ventricular systolic function is normal. ATRIA The left atrium size is normal. The right atrium size is normal. The interatrial septum is intact with no evidence for an atrial septal defect. AORTIC VALVE The aortic valve is thickened but opens well. There is trace aortic regurgitation. There is no aortic valvular stenosis. There is no aortic valvular vegetation. MITRAL VALVE The mitral valve is thickened but opens well. Mitral regurgitation is trace. There is no mitral valve stenosis. There is no evidence of mitral valve prolapse. TRICUSPID VALVE The tricuspid valve leaflets are thickened , but open well. There is mild tricuspid regurgitation.RVSP-33 mm of HG. There is no tricuspid valve stenosis. There is no tricuspid valve prolapse or vegetation. PULMONIC VALVE The pulmonary valve is normal in structure. There is trace pulmonic valvular regurgitation. There is no pulmonic valvular stenosis. GREAT VESSELS The aortic root is normal in size. The ascending aorta is normal in size. The pulmonary artery is normal. The IVC is normal in size and collapses >50% with inspiration. PERICARDIAL EFFUSION There is no pleural effusion. There is no pericardial effusion. <Conclusion> Normal chamber Size. EF-55-60% trace MR/PI/AR Mild TR, RVSp-33 mmof hg No Vegetation or thrombus noted, No PFO.
== END 2018-03-28 16:30 | disposition home or self-care (01) | DRG 312 ==
LOC: ED 14:34 → ERH 18:49 → 2RNO 21:52
PROVIDERS: ADMIT Internal Medicine; ATTEND Internal Medicine
DX: I95.1 Orthostatic hypotension (principal); R41.0 Disorientation, unspecified; D86.89 Sarcoidosis of other sites; D86.0 Sarcoidosis of lung; H40.9 Unspecified glaucoma; G43.909 Migraine, unspecified, not intractable, without status migrainosus; E78.5 Hyperlipidemia, unspecified; H26.9 Unspecified cataract; I10 Essential (primary) hypertension; Z79.52 Long term (current) use of systemic steroids; Z82.3 Family history of stroke; Z83.3 Family history of diabetes mellitus; Z86.73 Personal history of transient ischemic attack (TIA), and cerebral infarction without residual deficits; Z87.11 Personal history of peptic ulcer disease; Z90.710 Acquired absence of both cervix and uterus; Z98.1 Arthrodesis status; L40.9 Psoriasis, unspecified